=== PATIENT | female | born 1940 | race Caucasian/White ===

== ENCOUNTER 2019-03-13 20:53 | Inpatient (IN) | payer OTHER, MEDICAID ==
[~2019-03-13] VITALS: Ht 144.8 cm; Wt 100.2 kg
[2019-03-13 20:53] VITALS: BP_SYST 115
[~2019-03-13 20:53] MED LIST: ACET325T53 PO; APIX5TAB4 PO; ASCO500T20 PO; BUDE0.5A INH; ESCI10TA PO; FURO10VI27 IVP; GLUXR500 PO; INSU100V9 SQ; IPRA3AMP9 INH; KETO60CR2 TP; LIP40 PO; LORA-258 PO; MEMA5TAB15 PO; METO25TA3 PO; METO5TAB8 PO; OCUVITE PO; POTA-80 PO; PRED10TA PO; PRED5TAB PO; SSREG SUBCUT
--- NOTE | 2019-03-13 20:53 | NUR ---
Placed in room 02 . Placed on cardiac rn, blood pressure machine and pulse oximeter. To gown for exam. Side rails up.
--- NOTE | 2019-03-13 20:54 | NUR ---
ER Dr. Mauricio at bedside examining patient.
--- NOTE | 2019-03-13 20:55 | NUR ---
Pt BIB BLS from [facility] for abnormal potassium 6.5 and is being medically evaluated per PMD. Pt primary language english. Skin dry and warm, speaking loudly and clearly. VSS. No other injuries/complaints noted. Will continue to monitor.
[2019-03-13] MEDS ORDERED: NACL 0.9% 1,000 ML IV ONE (21:00)
[2019-03-13] MEDS ORDERED: DOCU-144 PO (21:13)
[2019-03-13] MEDS ORDERED: MELA3TAB64 PO (21:16)
[2019-03-13] MEDS ORDERED: METO25TA6 PO (21:17)
[2019-03-13] MEDS ORDERED: UTI-Stat Liquid PO (21:20)
--- NOTE | 2019-03-13 21:30 | NUR ---
Pt moved to bed 06
--- NOTE | 2019-03-13 21:35 | NUR ---
Portable X Ray bedside well tolerated
--- NOTE | 2019-03-13 21:41 | NUR ---
Medication reconciliation completed with information provided by Baron Collier. Any prior medication reconciliation on file was reviewed and corrected.
[2019-03-13 21:43] LABS: BASOPHILS # (AUTO) 0.1 K/uL (0.0-0.2); BASOPHILS % (AUTO) 0.7 % (0.0-2.0); EOSINOPHILS # (AUTO) 0.2 K/uL (0.0-0.4); EOSINOPHILS % (AUTO) 1.3 % (0.0-4.0); HEMATOCRIT 34.6 % (36-48); HEMOGLOBIN 10.7 g/dL (12.0-16.0); LYMPHOCYTES # (AUTO) 1.5 K/uL (1.0-5.5); LYMPHOCYTES % (AUTO) 12.4 % (20.5-51.5); MEAN CORPUSCULAR HEMOGLOBIN 27 pg (27-31); MEAN CORPUSCULAR HGB CONC 31 % (32-36); MEAN CORPUSCULAR VOLUME 86 fL (79.0-98.0); MONOCYTES % (AUTO) 8.1 % (1.7-9.3); NEUTROPHILS # (AUTO) 9.3 K/uL (1.8-7.7); NEUTROPHILS % (AUTO) 77.5 % (40.0-70.0); PLATELET COUNT (AUTO) 344 K/uL (130-430); RED BLOOD CELL COUNT(AUTO) 4.02 MIL/uL (4.2-6.2); RED CELL DISTRIBUTION WIDTH 17.5 % (9.0-15.0)
[2019-03-13 21:59] LABS: ANION GAP 4 (5-15); CALCIUM 9.1 mg/dL (8.4-11.0); CHLORIDE 101 mmol/L (98-107); GLUCOSE 150 mg/dL (70-99); POTASSIUM 5.3 mmol/L (3.5-5.1); SODIUM SERUM 136 mmol/L (136-145); UREA NITROGEN, BLOOD 59 mg/dL (8-21)
--- NOTE | 2019-03-13 22:00 | NUR ---
Daughter at bedside
[2019-03-13 22:05] LABS: ALANINE AMINOTRANSFERASE 33 U/L (12-78); ALBUMIN 2.7 g/dL (3.4-4.8); ASPARTATE AMINOTRANSFERASE 20 U/L (10-37); TOTAL BILIRUBIN 0.4 mg/dL (0.0-1.0)
--- NOTE | 2019-03-13 22:17 | NUR ---
# 14 Fr straight catheter with use of sterile technique. Immediate return of 20 cc yellow urine noted. Urine sample to be collected and sent to lab. Pt tolerated procedure well. Patient unable to toilet self.
--- NOTE | 2019-03-13 22:30 | NUR ---
End of life care decisions discussed with daughter by Dr. Mauricio. Opportunity for questions and concerns addressed. Patient's code status is DNR, paperwork completed and placed in chart. POLST placed in chart.
[2019-03-13 23:11] LABS: BILIRUBIN,URINE NEGATIVE (NEGATIVE); BLOOD, URINE 1+ (NEGATIVE); CLARITY/URINE HAZY (CLEAR); COLOR,URINE YELLOW (YELLOW); GLUCOSE,URINE NEGATIVE (NEGATIVE); KETONES,URINE NEGATIVE (NEGATIVE); LEUKOCYTE ESTERASE ,URINE 1+ (NEGATIVE); NITRITE, URINE NEGATIVE (NEGATIVE); PROTEIN URINE TRACE (NEGATIVE)
[2019-03-13] MEDS ORDERED: 0.45% NACL 1,000 ML IV SCH (23:45)
--- NOTE | 2019-03-13 23:48 | NUR ---
Patient will be admitted to care of DR. AUGUSTINE. Admitted to TELEMETRY unit. Will go to room 135. Summary report printed. Report will be given at bedside.
[2019-03-14] LABS: BACTERIA,URINE FEW /HPF (None Seen)
[2019-03-14 00:01] LABS: URINE AMORPHOUS URATE 2+ /HPF (None Seen)
[2019-03-14] MEDS ORDERED: LevALBUTEROL HCL 1.25 MG/0.5 ML *CONC.* VIAL.NEB (XOPENEX CONC.) INH PRN (00:30)
[2019-03-14] MEDS ORDERED: CEFEPIME 1 GM in D5W 50 ML IV SCH (00:30)
[2019-03-14] MEDS ORDERED: LORazepam 1 MG TABLET PO PRN (00:30)
--- NOTE | 2019-03-14 00:44 | NUR ---
ADMISSION NOTE Received patient from ER via reji, received report from ELIZABETH FORD. Patient admitted with diagnosis of UTI, DEHYDRATION. Patient oriented to hospital routine, call light, toileting and safety-patient verbalized understanding.
[2019-03-14] MEDS ORDERED: CEFEPIME 1 GM/VIAL (MAXIPIME) ONE (00:56)
[2019-03-14] MEDS ORDERED: CEFEPIME 1 GM in D5W 50 ML IV ONE (00:58)
[2019-03-14 01:12] VITALS: BP_SYST 111
[2019-03-14] MEDS: 0.45% NACL 1,000 ML IV SCH ×2 (01:17→17:10)
--- NOTE | 2019-03-14 02:20 | NUR ---
Patient is yelling. Noted patient with urinary incontinence. Patient wants to get out of bed. Assisted patient to the BSC with a gait belt. Patient is very unsteady. Had a BM in the BSC. Linen on the bed changed. Assisted patient with perineal care and changed the patients gown. Patient is now clean and dry. Patient returned back to bed. Resting comfortably in bed. No SOB, no acute distress, no complaints of pain. IVF infusing per MD order, see eMAR for details. Bed is locked, in the lowest position, 2x side rails up, bed alarm is on. Call light is within reach. Encouraged patient to call for assistance.
--- NOTE | 2019-03-14 03:12 | NUR ---
Patient is agitated, hitting staff members, and yelling. Attempted calming the patient down, but patient is still agitated and yelling. REROLLING MACHINE OPERATOR currently at the bedside staying with the patient. Charge nurse aware. Paging Dr Palencia, Dr IZQUIERDO supervisor contact and service clerks, for orders. Pharmacy placed pending orders on ativan dose.
--- NOTE | 2019-03-14 03:28 | NUR ---
Patient pulled out her IV site on the left AC. Catheter intact. New IV started on the right forearm #20g using sterile technique. Resumed IVF per MD order, see eMAR. Successful after 1 attempted. Patient tolerated procedure well.
[2019-03-14 04:22] VITALS: BP_SYST 111
--- NOTE | 2019-03-14 05:52 | NUR ---
Patient had an episode of urinary incontinence. Provide incontinence care as needed. Patient is now clean and dry resting in bed. Patient is yelling, combative. Educated patient now to hit the nursing staff. Patient is still yelling and agitated. Will continue to monitor closely.
--- NOTE | 2019-03-14 06:22 | NUR ---
Closing Notes Patient is resting comfortably in bed, awake and alert. Breathing even and unlabored with visible chest rise and fall noted. No SOB, no acute distress, no complaints of pain. IV site intact, dressing clean and dry, currently infusing IVF per MD order, see eMAR for details. Bed is locked, in the lowest position, 2x side rails up, bed alarm is on. Call light is within reach. Fall, safety precautions maintained. All needs have been met during this shift. Will endorse care to oncoming dayshift nurse.
[2019-03-14] MEDS: LevALBUTEROL HCL 1.25 MG/0.5 ML *CONC.* VIAL.NEB (XOPENEX CONC.) INH SCH ×3 (07:13→23:27)
[2019-03-14] MEDS: DOCUSATE SODIUM 100 MG CAPSULE PO SCH (08:35)
[2019-03-14] MEDS: PREDNISONE 10 MG TABLET PO SCH (08:36)
[2019-03-14] MEDS: METOLAZONE 5 MG TABLET PO SCH (08:36)
[2019-03-14] MEDS: MEMANTINE HCL 5 MG TABLET PO SCH ×2 (08:40→21:36)
[2019-03-14] MEDS: APIXABAN 2.5 MG TABLET PO SCH ×2 (08:43→21:47)
[2019-03-14] MEDS: METOPROLOL TARTRATE 25 MG TABLET PO SCH (09:33)
[2019-03-14] MEDS: BETA-CAROTENE W-C & E/ZN/CU TABLET PO SCH (09:33)
[2019-03-14 09:41] VITALS: BP_SYST 102
--- NOTE | 2019-03-14 10:28 | NUR ---
Nutrition Update Jerardo Scale 15 noted. Pt admitted for dehydration. Diet: mechanical soft BMI: 45.7 kg/m2 RD to follow per nutrition care standards.
[2019-03-14 11:39] VITALS: BP_SYST 104
[2019-03-14] MEDS: INSULIN REGULAR, HUMAN 100 UNITS/ML, 10 ML VIAL (humuLIN R) SUBCUT PRN (13:41)
[2019-03-14 16:23] VITALS: BP_SYST 112
--- NOTE | 2019-03-14 19:15 | NUR ---
CHANGE OF SHIFT; pt. sleeping when received on semi fowlers position. pt. non Georgian speaking, pt. is Yoruba. pt. with O2 @ 2l per nc, noted short of breath on exertion, occ. bouts of cough, endorsed by day shift,pt. did not eat today. safety precautions in place, bed alarm on. call light at bedside.
--- NOTE | 2019-03-14 20:30 | NUR ---
NOTES: pt. awakened, tries to communicate by calling or yelling for some name, VS checked. IV on rt. forearm, infiltrated, unable to flush. repositioned, incontinent of urine, guzman care done. noted swelling on both lower extremities, appears reddish and dried scabs and some ecchymosis on upper extremities. surveillance monitor shows atrial fib, rate> 100. pt. noted to cough and spit out thick greenish yellow mucus secretions.
[2019-03-14 21:00] VITALS: BP_SYST 116
[2019-03-14] MEDS ORDERED: INSULIN GLARGINE 100 UNITS/ML 10 ML VIAL SUBCUT SCH (21:00)
[2019-03-14] MEDS: ATORVASTATIN 20 MG TABLET PO SCH (21:35)
[2019-03-14] MEDS: CEFEPIME 1 GM in D5W 50 ML IV SCH (21:35)
--- NOTE | 2019-03-14 21:40 | NUR ---
NOTES: BS checked 93, Insulin not given since pt. is not eating and refused her Glucophage, few sips of water on the rest of medications, does not want with apple sauce. HOB elevated to prevent aspiration. restarted IV on rt. hand with gauge 24 and resume IVF.
[2019-03-14] MEDS: MELATONIN 3 MG TABLET PO SCH (21:44)
--- NOTE | 2019-03-14 23:00 | NUR ---
NOTES: pt. sleeping when checked. safety measures in place, bed alarm on.
--- NOTE | 2019-03-15 00:01 | NUR ---
NOTES: pt. sleeping when made rounds, kept warm with blanket. elevated both legs with pillow.
--- NOTE | 2019-03-15 02:00 | NUR ---
NOTES: pt. sliding down the bed, repositioned and turn to sides. check for incontinence. more alert, noted little croatian, very appreciative saying thank you. IVF patent, needs attended.
[2019-03-15 02:53] VITALS: BP_SYST 102
--- NOTE | 2019-03-15 04:30 | NUR ---
NOTES; pt. getting confused, removed IV site kerlix applied, reapplied. O2 removed as well. reoriented. repositioned. continue to monitor.
--- NOTE | 2019-03-15 06:00 | NUR ---
NOTES: been dozing on and off. pt. got incontinent of urine and guzman care done and kept dry, reposition, red reid on her back, Zgard cream applied also both heels and repositioned. IVF intact.
--- NOTE | 2019-03-15 06:45 | NUR ---
CLOSING NOTES; pt. removed her IV inspite of wrapping it. O2 continuous, HOB elevated. condition guarded. cardiac pattern unchanged. needs attended. fall risk precautions, bed alarm on, call light in reach. for further care and assistance. will endorse to day shift.
[2019-03-15] MEDS: LevALBUTEROL HCL 1.25 MG/0.5 ML *CONC.* VIAL.NEB (XOPENEX CONC.) INH SCH ×3 (07:40→22:05)
--- NOTE | 2019-03-15 07:53 | NUR ---
PT IN BED ON 2L NC VSS SHOWS S/S OF WHEEZING. RT TO GIVE BREATHING TREATMENT SOON. NO FAMILY AT BEDSIDE PT HAS LOUD OUTBURST AT TIMES. NO IV ACCESS WILL ATTEMPT TO PICC LINE.
[2019-03-15] MEDS: METOPROLOL TARTRATE 25 MG TABLET PO SCH (09:04)
[2019-03-15] MEDS: BETA-CAROTENE W-C & E/ZN/CU TABLET PO SCH (09:04)
[2019-03-15] MEDS: DOCUSATE SODIUM 100 MG CAPSULE PO SCH (09:04)
[2019-03-15] MEDS: MEMANTINE HCL 5 MG TABLET PO SCH ×2 (09:04→21:25)
[2019-03-15] MEDS: PREDNISONE 10 MG TABLET PO SCH (09:05)
[2019-03-15] MEDS: METOLAZONE 5 MG TABLET PO SCH (09:05)
[2019-03-15] MEDS: APIXABAN 2.5 MG TABLET PO SCH ×2 (09:18→21:28)
[2019-03-15 09:23] VITALS: BP_SYST 121
[2019-03-15] MEDS: 0.45% NACL 1,000 ML IV SCH ×2 (09:50→21:25)
[2019-03-15 11:16] LABS: BASOPHILS # (AUTO) 0.1 K/uL (0.0-0.2); BASOPHILS % (AUTO) 0.8 % (0.0-2.0); EOSINOPHILS # (AUTO) 0.1 K/uL (0.0-0.4); EOSINOPHILS % (AUTO) 0.9 % (0.0-4.0); HEMATOCRIT 34.2 % (36-48); HEMOGLOBIN 10.7 g/dL (12.0-16.0); LYMPHOCYTES # (AUTO) 1.1 K/uL (1.0-5.5); LYMPHOCYTES % (AUTO) 11.1 % (20.5-51.5); MEAN CORPUSCULAR HEMOGLOBIN 26 pg (27-31); MEAN CORPUSCULAR HGB CONC 31 % (32-36); MEAN CORPUSCULAR VOLUME 85 fL (79.0-98.0); MONOCYTES # (AUTO) 0.8 K/uL (0.0-1.0); NEUTROPHILS # (AUTO) 7.5 K/uL (1.8-7.7); NEUTROPHILS % (AUTO) 79.2 % (40.0-70.0); PLATELET COUNT (AUTO) 310 K/uL (130-430); RED BLOOD CELL COUNT(AUTO) 4.05 MIL/uL (4.2-6.2); RED CELL DISTRIBUTION WIDTH 17.6 % (9.0-15.0); WHITE BLOOD COUNT (AUTO) 9.5 K/uL (4.8-10.8)
[2019-03-15 11:40] LABS: ANION GAP 5 (5-15); CALCIUM 8.7 mg/dL (8.4-11.0); CHLORIDE 104 mmol/L (98-107); CREATININE 1.52 mg/dL (0.55-1.30); GLUCOSE 136 mg/dL (70-99); POTASSIUM 5.1 mmol/L (3.5-5.1); SODIUM SERUM 137 mmol/L (136-145); UREA NITROGEN, BLOOD 67 mg/dL (8-21)
[2019-03-15 14:02] VITALS: BP_SYST 105
[2019-03-15 15:25] VITALS: BP_SYST 124
--- NOTE | 2019-03-15 18:17 | NUR ---
new iv started in right hand patent. no redness noted. 1700 insulin held for bs 180 mg/dl due to pt not eating no acute distress noted will cont to monitor.
--- NOTE | 2019-03-15 19:45 | NUR ---
OPENING NOTES Pt is resting in bed, with both eyes closed. With visible chest rise and fall with non-labored breathing noted. Pt having her breathing treatment at this time. Pt on IVF with 0.45%NS at 60ml/hr and infusing well on right hand G24. No complains of pain or discomfort at this time. No signs of acute distress or SOB noted. Safety precautions in place with 3 side rails up, wheels locked, bed alarm on and in lowest level. Call light with pt. Will continue to monitor.
[2019-03-15] MEDS: CEFEPIME 1 GM in D5W 50 ML IV SCH (21:18)
[2019-03-15 21:23] VITALS: BP_SYST 110
[2019-03-15] MEDS: ATORVASTATIN 20 MG TABLET PO SCH (21:24)
[2019-03-15] MEDS: MELATONIN 3 MG TABLET PO SCH (21:24)
[2019-03-15] MEDS: INSULIN GLARGINE 100 UNITS/ML 10 ML VIAL SUBCUT SCH (21:30)
[2019-03-15] MEDS: INSULIN REGULAR, HUMAN 100 UNITS/ML, 10 ML VIAL (humuLIN R) SUBCUT PRN (21:31)
--- NOTE | 2019-03-15 21:31 | NUR ---
ROUNDS Incontinence care rendered with the help of NEHEMIAS Noyola. All due meds given and pt tolerated well. FS blood glucose was 221mg/dl. 4units Regular insulin SQ given per protocol and schedule 13units of Lantus given. No signs of acute distress noted.
--- NOTE | 2019-03-16 00:06 | NUR ---
ROUNDS Pt is resting in bed with both eyes closed, with visible chest rise and fall with non-labored breathing noted. No complains of pain and no signs of acute distress noted. IVF infusing well. Safety precautions in place and call light with pt. Will continue to monitor.
--- NOTE | 2019-03-16 01:01 | NUR ---
Positive for MRSA Nares: Received a call from Lab saying Patient is positive for MRSA nares. Primary RN made aware.
[2019-03-16 02:09] VITALS: BP_SYST 123
--- NOTE | 2019-03-16 02:23 | NUR ---
ROUNDS Pt is awake and talking at times. Pt on breathing treatment at this time. No signs of acute distress noted. IVF infusing well. Safety precautions in place and call light with pt. Will continue to monitor.
--- NOTE | 2019-03-16 04:18 | NUR ---
ROUNDS Pt is resting in bed with both eyes closed, with visible chest rise and fall with non-labored breathing noted. Pt wakes at intervals and goes back to sleep. IVF infusing well. No signs of acute distress or SOB noted. Safety precautions in place and call light with pt. Will continue to monitor.
[2019-03-16] MEDS: INSULIN REGULAR, HUMAN 100 UNITS/ML, 10 ML VIAL (humuLIN R) SUBCUT PRN ×4 (06:42→23:26)
--- NOTE | 2019-03-16 07:01 | NUR ---
CLOSING NOTES Pt is resting in bed with both eyes closed, with visible chest rise and fall with non-labored breathing noted. IVF infusing well. Maintained pt on O2 inhalation at 2L/min. No complains of pain or discomfort at this time. No signs of acute distress or SOB noted. All needs attended throughout the shift. Safety precautions in place with 3 side rails up, wheels locked, bed alarm on and in lowest level. Call light with pt. Will endorse to day shift nurse.
[2019-03-16] MEDS: LevALBUTEROL HCL 1.25 MG/0.5 ML *CONC.* VIAL.NEB (XOPENEX CONC.) INH SCH ×3 (07:23→23:39)
[2019-03-16 08:00] VITALS: BP_SYST 103
[2019-03-16 08:21] LABS: ANION GAP 5 (5-15); CALCIUM 7.9 mg/dL (8.4-11.0); CHLORIDE 105 mmol/L (98-107); CREATININE 1.34 mg/dL (0.55-1.30); GLUCOSE 176 mg/dL (70-99); POTASSIUM 4.9 mmol/L (3.5-5.1); SODIUM SERUM 140 mmol/L (136-145); UREA NITROGEN, BLOOD 52 mg/dL (8-21)
--- NOTE | 2019-03-16 10:00 | NUR ---
rounds speak with pt's daughter and relayed to her that refused breakfast and meds at this time. sleeps at intervals . turned repositoned and moans when being turned. pt close to the nurses station.
[2019-03-16 11:29] VITALS: BP_SYST 101
--- NOTE | 2019-03-16 11:37 | NUR ---
Dietitian Recommendations *Recommend Mechanical Soft CCHO diet. *If PO intake does not improve by next RD visit, consider adding ONS for additional calories. *Encourage pt to increase PO intake. *Continue MVI. Please see Nutritional Assessment for details. HALF-WAY, RD
--- NOTE | 2019-03-16 12:30 | NUR ---
rounds no hypo hyperglycemic reaction noted. confused and screaming at this time. call light within reached.
[2019-03-16] MEDS: MEMANTINE HCL 5 MG TABLET PO SCH ×2 (13:11→20:00)
[2019-03-16] MEDS: BETA-CAROTENE W-C & E/ZN/CU TABLET PO SCH (13:11)
[2019-03-16] MEDS: METOPROLOL TARTRATE 25 MG TABLET PO SCH (13:11)
[2019-03-16] MEDS: APIXABAN 2.5 MG TABLET PO SCH ×2 (13:12→20:00)
[2019-03-16] MEDS: PREDNISONE 10 MG TABLET PO SCH (13:12)
[2019-03-16] MEDS: METOLAZONE 5 MG TABLET PO SCH (13:13)
[2019-03-16] MEDS: DOCUSATE SODIUM 100 MG CAPSULE PO SCH (13:26)
--- NOTE | 2019-03-16 14:00 | NUR ---
rounds asleep at this time. bed to the lowest postion and pt close to the nurses station.
[2019-03-16 15:45] VITALS: BP_SYST 122
--- NOTE | 2019-03-16 17:24 | NUR ---
CONSULTATION CALLED FOR THAO DURON FOR CANSULT OF PSYCHOSIS ORDER BY DR AUGUSTINE SPOKE WITH CLAUDIO FACESHEET SENT OVER
--- NOTE | 2019-03-16 18:45 | NUR ---
closing notes pt is quite at this time.no periods of confusion. daughter at bedside. no sob noted. bed to the lowest position and side rails up and locked.
--- NOTE | 2019-03-16 19:20 | NUR ---
CHANGE OF SHIFT; pt. awake, alert, daughter at bedside, feeding her with fruits, did not eat dinner, with poor appetite. pt. gets confused and restless and attempts to remove IV. pt. speaks Yi, informed daughter to let her know not to remove IV and other stuff. pt. was placed on contact isolation for MRSA nares. on fall risk precautions. call light at bedside.
[2019-03-16] MEDS: MUPIROCIN 2% TOPICAL OINTMENT 22 GM NS SCH (19:59)
[2019-03-16] MEDS: 0.45% NACL 1,000 ML IV SCH (19:59)
[2019-03-16] MEDS: CEFEPIME 1 GM in D5W 50 ML IV SCH (19:59)
[2019-03-16] MEDS: MELATONIN 3 MG TABLET PO SCH (20:00)
[2019-03-16] MEDS: ATORVASTATIN 20 MG TABLET PO SCH (20:01)
--- NOTE | 2019-03-16 20:15 | NUR ---
NOTES: 'pt. sleeping, awakened, VS checked. still able to removed secured dressing on IV site, starts yelling and calling names, try to instruct to calm down and relax. able to swallow her medications. noted some ecchymosis on both arms, both legs swollen henry. rt. leg, skin reddened, elevated with pillows. pt. appears short of breath on exertion, O2 @ 2l/nc. HOB elevated for easier breathing. IV infusing via rt. thumb with !/2 NS 2 60 cc/hr. safety measures in place.call light at bedside.
[2019-03-16 21:00] VITALS: BP_SYST 99
--- NOTE | 2019-03-16 21:00 | NUR ---
NOTES: due hs care done, had BM , cleaned by ANCHOR TACKER and repositioned. pt. been yelling on and off.
--- NOTE | 2019-03-16 21:28 | NUR ---
CONSULT CONSULT CALLED FOR DR. MUNROE I SPOKE WITH MARTÍNEZ TAYLOR REASON FOR CONSULT: SCREAMING AT INTERVALS WHEN AWAKE REQUESTING CONSULT: DR. AUGUSTINE CHAIN FORMING MACHINE OPERATOR PHONE NUMBER: [phone] Addendum: 03/17/19 at 0156 by Evelyn Lara ND/ CONSULT WAS CALLED FOR DR. OSUNA I DID CALLED DR. OSUNA SPOKE WITH JENN BUT ON MY NOTES I WROTE DR. MUNROE BY MISTAKE
--- NOTE | 2019-03-16 22:15 | NUR ---
NOTES: Dr. Ugarte came at bedside but not talk to pt. since he does not speak her language, informed the Ativan order to clarify and said he will, made aware that pt. can swallow pills. condition observed. been dozing on and off.
[2019-03-16] MEDS: INSULIN GLARGINE 100 UNITS/ML 10 ML VIAL SUBCUT SCH (23:24)
--- NOTE | 2019-03-17 00:30 | NUR ---
NOTES: pt. removed her IV wrap again, been restless. tried to communicate by multicut line operator, repositioned. safety measure in place.
[2019-03-17 01:19] VITALS: BP_SYST 93
--- NOTE | 2019-03-17 01:58 | NUR ---
NOTES: pt. checked, been coughing, asked to cough up her secretions, HOB elevated, keep taking off her O@, gets wheezy at time henry. on exertion.
--- NOTE | 2019-03-17 04:00 | NUR ---
NOTES: condition guarded. observed contact isolation. been sleeping at intervals. repositioned. bed alarm on, side rails up.
--- NOTE | 2019-03-17 05:15 | NUR ---
NOTES: complete am and guzman care done, had another foul smelling brown stool and incontinent of urine. repositioned in bed, turn to sides. IV patent. suctioned orally with thick mucus secretions, HOB elevated.
[2019-03-17] MEDS: INSULIN REGULAR, HUMAN 100 UNITS/ML, 10 ML VIAL (humuLIN R) SUBCUT PRN ×3 (06:43→21:27)
[2019-03-17] MEDS: LevALBUTEROL HCL 1.25 MG/0.5 ML *CONC.* VIAL.NEB (XOPENEX CONC.) INH SCH ×2 (07:22→14:34)
[2019-03-17 08:00] VITALS: BP_SYST 114
--- NOTE | 2019-03-17 08:00 | NUR ---
initial notes rec patient asleep but arousable to stimuli. with periods of confusion and screams when awake. resp easy and unlabored. bed to the lowest position and siderails up and locked. call light within reached and knows when to call for for assistance. pt close to the nurses station and bed alarmed is on.
[2019-03-17] MEDS: MEMANTINE HCL 5 MG TABLET PO SCH ×2 (09:54→21:12)
[2019-03-17] MEDS: MUPIROCIN 2% TOPICAL OINTMENT 22 GM NS SCH ×2 (09:54→21:13)
[2019-03-17] MEDS: DOCUSATE SODIUM 100 MG CAPSULE PO SCH (09:55)
[2019-03-17] MEDS: PREDNISONE 10 MG TABLET PO SCH (09:55)
[2019-03-17] MEDS: METOLAZONE 5 MG TABLET PO SCH (09:58)
[2019-03-17] MEDS: APIXABAN 2.5 MG TABLET PO SCH ×2 (09:59→21:23)
[2019-03-17] MEDS: METOPROLOL TARTRATE 25 MG TABLET PO SCH (09:59)
--- NOTE | 2019-03-17 10:00 | NUR ---
rounds at the bedside and due meds were given and ese well. screaming at this time and med with ativan for agitation was given. pt close to the station.
[2019-03-17] MEDS: LORazepam 1 MG TABLET PO PRN (10:01)
[2019-03-17] MEDS: 0.45% NACL 1,000 ML IV SCH (11:50)
[2019-03-17 12:00] VITALS: BP_SYST 109
[2019-03-17 15:26] VITALS: BP_SYST 117
[2019-03-17] MEDS: BETA-CAROTENE W-C & E/ZN/CU TABLET PO SCH (18:29)
--- NOTE | 2019-03-17 18:30 | NUR ---
closing notes seen by dr quiroz at bedside and with orders. talking to patient son at bedside. no osb noted. bed to the lowest position and side rails up and locked.pt close to the nurses station.
--- NOTE | 2019-03-17 19:26 | NUR ---
CHANGE OF SHIFT; pt. sleeping when checked, family member came and brought food. on contact isolation for MRSA nares. safety measures in place.call light at bedside.
[2019-03-17] MEDS ORDERED: AMPICILLIN SODIUM/SULBACTAM NA 1.5 GM in NS 50 ML IV ONE (19:30)
--- NOTE | 2019-03-17 19:30 | NUR ---
NOTES: Dr. Jangium here and seen pt, aware of pt. rt. leg appears to be cellulitis, skin naga by day shift, new orders given. pt. son at bedside and was able to talk to MD. pt. son brought some food for the pt.
[2019-03-17] MEDS ORDERED: AMPICILLIN SODIUM/SULBACTAM NA 1.5 GM VIAL ONE ×2 (20:22→20:24)
[2019-03-17 20:30] VITALS: BP_SYST 115
--- NOTE | 2019-03-17 21:00 | NUR ---
NOTES; pt. awakened and repositioned. IVF site getting swollen, will attempt to restart another one. on contact isolation for MRSA nares. safety measures in place. rt. leg swollen and kept elevated with pillow. new IV antibiotic order infused. pt. noted occ. bouts of productive cough, gets wheezy on exertion. call light within reach.
[2019-03-17] MEDS: ATORVASTATIN 20 MG TABLET PO SCH (21:12)
[2019-03-17] MEDS: MEGESTROL ACETATE 400 MG/10 ML UDC PO SCH (21:12)
[2019-03-17] MEDS: MUPIROCIN 2% TOPICAL OINTMENT 22 GM TP SCH (21:14)
[2019-03-17] MEDS: CEFEPIME 1 GM in D5W 50 ML IV SCH (21:20)
[2019-03-17] MEDS: MELATONIN 3 MG TABLET PO SCH (21:20)
--- NOTE | 2019-03-17 22:00 | NUR ---
NOTES: pt. tolerated due po medications. pt. needs attended. call light at bedside.
[2019-03-17] MEDS: INSULIN GLARGINE 100 UNITS/ML 10 ML VIAL SUBCUT SCH (22:28)
[2019-03-18] MEDS: LevALBUTEROL HCL 1.25 MG/0.5 ML *CONC.* VIAL.NEB (XOPENEX CONC.) INH SCH ×4 (00:02→23:12)
--- NOTE | 2019-03-18 00:15 | NUR ---
NOTES; repositioned, fed her the bread and ate half of it, HOB elevated to prevent aspiration. safety measures in place.
[2019-03-18] MEDS: 0.45% NACL 1,000 ML IV SCH ×2 (00:56→18:57)
[2019-03-18] MEDS: AMPICILLIN SODIUM/SULBACTAM NA 1.5 GM in NS 50 ML IV SCH ×4 (01:28→18:57)
[2019-03-18 02:02] VITALS: BP_SYST 97
--- NOTE | 2019-03-18 03:29 | NUR ---
NOTES: pt. dozing on and off, everytime she wakes up she keeps yelling, condition unchanged. continue to monitor.
--- NOTE | 2019-03-18 05:30 | NUR ---
NOTES: pt. removed IV again, multiple IV sites ecchymotic on both arms with blood draw as well. pt. repositioned, incontinent of urine, guzman care done, kept both legs elevated. condition observed.
--- NOTE | 2019-03-18 06:00 | NUR ---
NOTES: pt. been yelling again on and off. condition obsrved. safety precautions in place. IV site intact.
--- NOTE | 2019-03-18 06:50 | NUR ---
CLOSING NOTES; pt. managed to remove again her IV and secured /kerlix dressing. will endorse to day shift. pt. gets restless and confused. HOB elevated, O2 keep taking off. contact isolation observed.
[2019-03-18] MEDS: INSULIN REGULAR, HUMAN 100 UNITS/ML, 10 ML VIAL (humuLIN R) SUBCUT PRN ×3 (07:00→21:02)
[2019-03-18 07:58] LABS: BASOPHILS # (AUTO) 0.1 K/uL (0.0-0.2); BASOPHILS % (AUTO) 0.9 % (0.0-2.0); EOSINOPHILS # (AUTO) 0.1 K/uL (0.0-0.4); EOSINOPHILS % (AUTO) 0.5 % (0.0-4.0); HEMOGLOBIN 9.6 g/dL (12.0-16.0); LYMPHOCYTES # (AUTO) 1.3 K/uL (1.0-5.5); LYMPHOCYTES % (AUTO) 10.3 % (20.5-51.5); MEAN CORPUSCULAR HEMOGLOBIN 26 pg (27-31); MEAN CORPUSCULAR HGB CONC 31 % (32-36); MEAN CORPUSCULAR VOLUME 84 fL (79.0-98.0); MONOCYTES # (AUTO) 0.8 K/uL (0.0-1.0); MONOCYTES % (AUTO) 6.2 % (1.7-9.3); NEUTROPHILS # (AUTO) 10.8 K/uL (1.8-7.7); NEUTROPHILS % (AUTO) 82.1 % (40.0-70.0); PLATELET COUNT (AUTO) 335 K/uL (130-430); RED CELL DISTRIBUTION WIDTH 17.7 % (9.0-15.0); WHITE BLOOD COUNT (AUTO) 13.1 K/uL (4.8-10.8)
[2019-03-18 07:59] LABS: ANION GAP 5 (5-15); CALCIUM 8.3 mg/dL (8.4-11.0); CHLORIDE 106 mmol/L (98-107); CREATININE 1.29 mg/dL (0.55-1.30); GLUCOSE 145 mg/dL (70-99); POTASSIUM 4.8 mmol/L (3.5-5.1); SODIUM SERUM 141 mmol/L (136-145); UREA NITROGEN, BLOOD 50 mg/dL (8-21)
[2019-03-18 08:00] VITALS: BP_SYST 119
--- NOTE | 2019-03-18 08:21 | NUR ---
Initial Note: Pt is awake, confused. No acute distress noted. Pt is on 2L NC, tolerating well. No IV access, pt keeps pulling out. Will attempt to start new one. Redness noted on right leg. Safety precautions in place, bed alarm on, call light within reach, and maintained on contact isolation.
[2019-03-18] MEDS: MEGESTROL ACETATE 400 MG/10 ML UDC PO SCH ×2 (09:06→21:07)
[2019-03-18] MEDS: METOLAZONE 5 MG TABLET PO SCH (09:08)
[2019-03-18] MEDS: PREDNISONE 10 MG TABLET PO SCH (09:08)
[2019-03-18] MEDS: DOCUSATE SODIUM 100 MG CAPSULE PO SCH (09:08)
[2019-03-18] MEDS: MEMANTINE HCL 5 MG TABLET PO SCH ×2 (09:08→21:07)
[2019-03-18] MEDS: BETA-CAROTENE W-C & E/ZN/CU TABLET PO SCH (09:08)
[2019-03-18] MEDS: METOPROLOL TARTRATE 25 MG TABLET PO SCH (09:09)
[2019-03-18] MEDS: APIXABAN 2.5 MG TABLET PO SCH ×2 (09:10→21:06)
[2019-03-18] MEDS: MUPIROCIN 2% TOPICAL OINTMENT 22 GM NS SCH ×2 (09:11→21:12)
[2019-03-18] MEDS: MUPIROCIN 2% TOPICAL OINTMENT 22 GM TP SCH ×2 (09:12→21:00)
--- NOTE | 2019-03-18 10:00 | NUR ---
Notes- Resting in bed, no acute distress noted. repositioned for comfort. elevated legs with pillow.
--- NOTE | 2019-03-18 11:53 | NUR ---
Notes- Unable to start IV, pt is very hardstick and keeps removing lines. Dr. Palencia and Dr. Allen at bedside and made aware. also aware that unable to give IV unasyn at 12. Md will order PIcc Line and okayed to put Mittens after PICC line insertion.
--- NOTE | 2019-03-18 11:59 | NUR ---
Notes-Family is at bedside and aware of PICC line to be inserted for pt. Addendum: 03/18/19 at 1207 by Apurva Rocha RN Pt agreeable, and consent was signed by family.
[2019-03-18] MEDS ORDERED: VANCOMYCIN HCL 1,500 MG in NS 250 ML IV ONE (12:00)
[2019-03-18] MEDS: LORazepam 1 MG TABLET PO PRN ×2 (12:38→22:26)
--- NOTE | 2019-03-18 12:41 | NUR ---
NOTES-PT AWAKE, CONFUSED AND AGITATED. PRN MEDICATION 0.5 ATIVAN GIVEN. REPOSITION PT FOR COMFORT, DECREASE NOISE AND DIMMED LIGHT. NO ACUTE DISTRESS NOTED. DENIES ANY PAIN OR SOB. PT CONTINUES TO BE ON 2L NC AND TOLERATING WELL.
[2019-03-18 13:01] LABS: INR 1.3 (0.8-1.2)
[2019-03-18 13:04] VITALS: BP_SYST 148
--- NOTE | 2019-03-18 14:00 | NUR ---
NOTES-PT ASLEEP. NO ACUTE DISTRESS NOTED. PT IS ON 2L NC, TOLERATING WELL, BREATHING IS EVEN AND UN-LABORED. SAFETY PRECAUTIONS OBSERVED, BED ALARM IS ON, AND ISOLATION PRECAUTIONS IN PLACE.
--- NOTE | 2019-03-18 15:05 | NUR ---
NOTES-STILL WAITING FOR PICC LINE NURSE TO COME. UNABLE TO GIVE VANCO AT THIS TIME.
--- NOTE | 2019-03-18 16:00 | NUR ---
NOTES-PT ASLEEP. ON 2L NC, TOLERATING WELL. BREATHING IS EVEN AND UN-LABORED. NO ACUTE DISTRESS NOTED. WILL CONTINUE TO MONITOR.
[2019-03-18 16:03] VITALS: BP_SYST 114
--- NOTE | 2019-03-18 16:30 | NUR ---
PT HAD BILATERAL MASTECTOMY DONE IN 2006 PER FAMILY.
--- NOTE | 2019-03-18 18:35 | NUR ---
NOTE-PICC LINE DONE ON RIGHT UPPER ARM. WAITING FOR X-RAY.
--- NOTE | 2019-03-18 18:35 | NUR ---
CLOSING NOTE- PT IN BED, ASLEEP. NO ACUTE DISTRESS NOTED. BREATHING EVEN AND UN-LABORED. WAITING FOR X-RAY TO CONFIRM PICC LINE PLACEMENT. WILL ENDORSE PT CARE TO SAAS ARCHITECT NURSE.
--- NOTE | 2019-03-18 19:35 | NUR ---
ROUNDS PATIENT IN BED, AWAKE, ALERT, ORIENTED, CONFUSED, NOT IN DISTRESS, VITALS STABLE. NO SIGNS OF ANY PAIN AND DISCOMFORT NOTED. ASSESSMENT DONE AND DOCUMENTED. SEE FLOWSHEET. NEEDS ATTENDED TO. SAFETY AND FALL PRECAUTION MEASURES IN PLACED. BED N LOW AND LOCKED POSITION. BED ALARM ON. CALL LIGHT PLACED WITHIN REACH.
[2019-03-18] MEDS: INSULIN GLARGINE 100 UNITS/ML 10 ML VIAL SUBCUT SCH (21:01)
[2019-03-18] MEDS: ATORVASTATIN 20 MG TABLET PO SCH (21:07)
[2019-03-18] MEDS: MELATONIN 3 MG TABLET PO SCH (21:12)
--- NOTE | 2019-03-18 21:13 | NUR ---
MEDICATION DUE MEDICATIONS GIVEN SCHEDULED, TOLERATED WELL. WILL CONTINUE TO MONITOR.
--- NOTE | 2019-03-19 00:10 | NUR ---
PATIENT RESTING: Patient resting quietly. No acute distress noted. Vital signs within normal range.
[2019-03-19] MEDS: AMPICILLIN SODIUM/SULBACTAM NA 1.5 GM in NS 50 ML IV SCH ×3 (00:52→12:04)
--- NOTE | 2019-03-19 02:10 | NUR ---
ROUNDS PATIENT ASLEEP AT THIS TIME, NO SOB NOR PAIN AND DISCOMFORT NOTED. WILL CONTINUE TO MONITOR.
--- NOTE | 2019-03-19 04:16 | NUR ---
ROUNDS PATIENT ASLEEP, VITALS STABLE, RESPIRATIONS EVEN AND UNLABORED. WILL CONTINUE TO MONITOR.
[2019-03-19 06:29] VITALS: BP_SYST 130
--- NOTE | 2019-03-19 06:55 | NUR ---
ROUNDS PATIENT AWAKE, RESTING COMFORTABLY AT THIS TIME, VITALS STABLE. ALL NEEDS ATTENDED TO. SAFETY MEASURES MAINTAINED. CALL LIGHT PLACED WITHIN REACH.
[2019-03-19] MEDS: LevALBUTEROL HCL 1.25 MG/0.5 ML *CONC.* VIAL.NEB (XOPENEX CONC.) INH SCH ×2 (07:31→15:20)
--- NOTE | 2019-03-19 08:00 | NUR ---
initial notes rec patient awake with period of confusion. picc line on the r upper arm intact. no infiltration noted. resp easy and unlabored. with wheezing noted. with sob on exertion. on breathin tx at bedside. bed to the lowest position and side rails up and locked. call light wihtn reached and bed larm is on. pt close to the nurse station. will continue to monitor patient.
[2019-03-19] MEDS: DOCUSATE SODIUM 100 MG CAPSULE PO SCH (09:27)
[2019-03-19] MEDS: MUPIROCIN 2% TOPICAL OINTMENT 22 GM NS SCH (09:27)
[2019-03-19] MEDS: BETA-CAROTENE W-C & E/ZN/CU TABLET PO SCH (09:27)
[2019-03-19] MEDS: PREDNISONE 10 MG TABLET PO SCH (09:27)
[2019-03-19] MEDS: MEMANTINE HCL 5 MG TABLET PO SCH (09:27)
[2019-03-19] MEDS: METOPROLOL TARTRATE 25 MG TABLET PO SCH (09:28)
[2019-03-19] MEDS: APIXABAN 2.5 MG TABLET PO SCH (09:29)
[2019-03-19] MEDS: MEGESTROL ACETATE 400 MG/10 ML UDC PO SCH (09:30)
[2019-03-19] MEDS: MUPIROCIN 2% TOPICAL OINTMENT 22 GM TP SCH (09:31)
--- NOTE | 2019-03-19 10:00 | NUR ---
rounds due meds given as ordered and ese well. no sob noted. complete bed changed done at bedside with kory castillo.
[2019-03-19] MEDS ORDERED: VANCOMYCIN HCL 1 GM/NS PREMIX 250 ML IV SCH (12:00)
--- NOTE | 2019-03-19 12:00 | NUR ---
rounds seen by dr quiroz. no hypo hyperglycemic reaction noted. bed to the lowest position. no osb noted.
--- NOTE | 2019-03-19 12:14 | NUR ---
CONSULTATION PAGED/CALLED Reason for Consultation: CELLULITIS RIGHT LEG Person Who was Notified: SPOKE WITH KIERAN FROM OFFICE. Consulting Physician: Integration Aide Specialty: ID Ordering Physician:
[2019-03-19] MEDS ORDERED: risperiDONE 0.25 MG TABLET (RisperDAL) PO ONE (12:15)
[2019-03-19 12:26] LABS: BASOPHILS # (AUTO) 0.1 K/uL (0.0-0.2); BASOPHILS % (AUTO) 0.5 % (0.0-2.0); EOSINOPHILS # (AUTO) 0.1 K/uL (0.0-0.4); EOSINOPHILS % (AUTO) 0.9 % (0.0-4.0); HEMATOCRIT 32.5 % (36-48); LYMPHOCYTES # (AUTO) 1.2 K/uL (1.0-5.5); LYMPHOCYTES % (AUTO) 9.3 % (20.5-51.5); MEAN CORPUSCULAR HEMOGLOBIN 26 pg (27-31); MEAN CORPUSCULAR HGB CONC 31 % (32-36); MEAN CORPUSCULAR VOLUME 86 fL (79.0-98.0); MONOCYTES % (AUTO) 7.7 % (1.7-9.3); NEUTROPHILS # (AUTO) 10.2 K/uL (1.8-7.7); NEUTROPHILS % (AUTO) 81.6 % (40.0-70.0); PLATELET COUNT (AUTO) 353 K/uL (130-430); WHITE BLOOD COUNT (AUTO) 12.5 K/uL (4.8-10.8)
[2019-03-19 13:00] VITALS: BP_SYST 112
[2019-03-19] MEDS: METOLAZONE 5 MG TABLET PO SCH (13:01)
--- NOTE | 2019-03-19 14:00 | NUR ---
rounds awake and shouting at this time.
--- NOTE | 2019-03-19 14:12 | NUR ---
Nutrition F/U RD reviewed pt's current EMR including diet Hx, physician notes, nursing notes, pertinent labs/m,eds/procedures, care trends and care activity. Current Diet Order:Mech Soft, Standard Carb 60gm PO intakes: 30% average x 5 meals Subjective information: Pt asleep upon RD interview. Per RN outside pt room, pt appetite and PO intake remains poor, megace initiated a couple days ago. Pt daughter comes in the evening bringing food from home, which pt will eat. Per RN, no BM yet. Estimated Energy Expenditure (kcals/day) 2157-4066 kcal/day (25-30 kcal/kg Adj IBW for Obesity) Estimated Protein Required (g/day) 54-65gm/day(1-1.2gm/kg Adj IBW -Geriatric maintenance/elevated Renal labs ) Estimated Fluid Required (l/day) 1.4-1.6 L/day (1ml/calorie for Geriatric maintenance) Problem/Etiology/Signs/Symptoms Altered nutrition related laboratory value r/t endocrine dysfunction AEB elevated BG and POC BG lab values. *ongoing Inadequate nutrient intake r/t possible poor appetite AEB PO intake does not meet 75% of estimated needs. *ongoing Expected Outcomes/Goals Monitor appetite and PO intake w/ goal of pt meeting at least 75% of estimated nutritional needs, labs trending WNL, normal GI function, skin integrity/wt maintenance. Dietitian Recommendations *Continue Mechanical Soft CCHO diet. *Recommend Glucerna BID (provides 475kcal and 84g of Pro) to help meet estimated needs with poor PO intake. *Encourage pt to increase PO intake. *Continue MVI. Follow Up High Risk: F/U in 2-3days
[2019-03-19 15:26] VITALS: BP_SYST 112
--- NOTE | 2019-03-19 15:40 | NUR ---
Discharge Planning: DCP faxed to [facility]lier (f [phone] p [phone]) Rm 23A , [place] ([phone]) 4:00pm P/U. Packet taken to nurse station.
[2019-03-19] MEDS ORDERED: risperiDONE 0.25 MG TABLET (RisperDAL) PO SCH (21:00)
[2019-03-30] MEDS ORDERED: MEGE40TA PO (23:03)
[2019-03-30] MEDS ORDERED: MULT-1100 PO (23:03)
[2019-03-30] MEDS ORDERED: LEVA1.2527 NEB (23:03)
[2019-03-30] MEDS ORDERED: ASCO500T20 PO (23:03)
[2019-03-30] MEDS ORDERED: RISP0.253 PO (23:03)
[2019-03-30] MEDS ORDERED: LORA-258 PO (23:03)
[2019-03-30] MEDS ORDERED: ZINC30CA PO (23:03)
[2019-04-10] MEDS ORDERED: MELA3TAB64 PO (17:57)
== END 2019-03-19 16:15 | DRG 871 ==
LOC: SED 20:53 → STU 23:41
PROVIDERS: ADMIT Family Medicine; ATTEND Family Medicine
PROC: 02HV33Z Insertion of Infusion Device into Superior Vena Cava, Percutaneous Approach (ICD-10-PCS; principal; 2019-03-18)
PROC: B548ZZA Ultrasonography of Superior Vena Cava, Guidance (ICD-10-PCS; 2019-03-18)
DX: A41.9 Sepsis, unspecified organism (principal); G93.41 Metabolic encephalopathy; N17.9 Acute kidney failure, unspecified; L03.115 Cellulitis of right lower limb; J90 Pleural effusion, not elsewhere classified; N39.0 Urinary tract infection, site not specified; Z68.42 Body mass index [BMI] 45.0-49.9, adult; E86.0 Dehydration; I48.91 Unspecified atrial fibrillation; B96.20 Unspecified Escherichia coli [E. coli] as the cause of diseases classified elsewhere; E11.9 Type 2 diabetes mellitus without complications; M19.90 Unspecified osteoarthritis, unspecified site; F29 Unspecified psychosis not due to a substance or known physiological condition; E87.5 Hyperkalemia; F03.90 Unspecified dementia, unspecified severity, without behavioral disturbance, psychotic disturbance, mood disturbance, and anxiety; E66.9 Obesity, unspecified; I10 Essential (primary) hypertension; J44.9 Chronic obstructive pulmonary disease, unspecified; Z22.322 Carrier or suspected carrier of Methicillin resistant Staphylococcus aureus; Z87.891 Personal history of nicotine dependence
CPT/HCPCS: 36415; 71045; 80048; 80053; 81000-TC; 82962; 83880; 84484; 85025; 85610-TC; 85730-TC; 87081; 87086; 87186-TC; 93005; 94640; 94760; 96360; 99285; C1751; C1769; G0378; J0295; J0692; J1815; J3370; J7050; J7060; J7512; J7612

== ENCOUNTER 2019-04-10 16:34 | Inpatient (IN) | payer OTHER, MEDICAID ==
[~2019-04-10] VITALS: Ht 149.9 cm; Wt 95.7 kg
[2019-04-10] VITALS (7 sets, daily range): BP systolic 97–128
--- NOTE | 2019-04-10 16:39 | NUR ---
Placed in room 07 . Placed on threat monitoring analyst, blood pressure machine and pulse oximeter. To gown for exam. Side rails up.
--- NOTE | 2019-04-10 16:40 | NUR ---
Per documentation pt is DNR. Dr Francisco notified.
--- NOTE | 2019-04-10 16:42 | NUR ---
Pt brought by ACLS, A&Ox1, pt presents to ER with SOB and cough x 3 days and ALOC, hypoxic 65% on scene , pt arrived with 15 L non-rebreather mask, O2 100 % on mask, pt arrived with IV 22 on L wrist, cap refill <3, afebrile, will continue to monitor.
--- NOTE | 2019-04-10 16:45 | NUR ---
Cady Brooks at bedside examining patient
--- NOTE | 2019-04-10 16:50 | NUR ---
X-ray at bedside
[2019-04-10] MEDS ORDERED: IPRATROPIUM/ALBUTEROL SULFATE 3 ML AMPUL.NEB (DUONEB) INH ONE (17:00)
--- NOTE | 2019-04-10 17:00 | NUR ---
RT at bedside
--- NOTE | 2019-04-10 17:05 | NUR ---
IV placed by medics on L wrist is infiltrated , IV removed at this time.
--- NOTE | 2019-04-10 17:10 | NUR ---
Pt placed on BIPAP by RT as ordered by Dr Francisco.
[2019-04-10 17:15] LABS: BASOPHILS # (AUTO) 0.1 K/uL (0.0-0.2); BASOPHILS % (AUTO) 1.2 % (0.0-2.0); EOSINOPHILS # (AUTO) 0.1 K/uL (0.0-0.4); EOSINOPHILS % (AUTO) 1.1 % (0.0-4.0); HEMATOCRIT 29.2 % (36-48); LYMPHOCYTES # (AUTO) 0.5 K/uL (1.0-5.5); LYMPHOCYTES % (AUTO) 5.5 % (20.5-51.5); MEAN CORPUSCULAR HEMOGLOBIN 24 pg (27-31); MEAN CORPUSCULAR HGB CONC 30 % (32-36); MEAN CORPUSCULAR VOLUME 80 fL (79.0-98.0); MONOCYTES # (AUTO) 0.4 K/uL (0.0-1.0); NEUTROPHILS # (AUTO) 8.8 K/uL (1.8-7.7); NEUTROPHILS % (AUTO) 88.2 % (40.0-70.0); PLATELET COUNT (AUTO) 293 K/uL (130-430); RED BLOOD CELL COUNT(AUTO) 3.64 MIL/uL (4.2-6.2); RED CELL DISTRIBUTION WIDTH 19.4 % (9.0-15.0); WHITE BLOOD COUNT (AUTO) 9.9 K/uL (4.8-10.8)
[2019-04-10] MEDS ORDERED: INSULIN REGULAR, HUMAN 100 UNITS/ML, 10 ML VIAL SUBCUT ONE (17:15)
[2019-04-10 17:22] LABS: BILIRUBIN,URINE NEGATIVE (NEGATIVE); BLOOD, URINE NEGATIVE (NEGATIVE); CLARITY/URINE CLEAR (CLEAR); COLOR,URINE YELLOW (YELLOW); GLUCOSE,URINE NEGATIVE (NEGATIVE); KETONES,URINE NEGATIVE (NEGATIVE); LEUKOCYTE ESTERASE ,URINE NEGATIVE (NEGATIVE); NITRITE, URINE NEGATIVE (NEGATIVE); PH,URINE 7.5 (5.0-8.0); PROTEIN URINE TRACE (NEGATIVE)
[2019-04-10 17:23] LABS: ANION GAP 4 (5-15); CALCIUM 8.6 mg/dL (8.4-11.0); CHLORIDE 103 mmol/L (98-107); CREATININE 1.14 mg/dL (0.55-1.30); GLUCOSE 244 mg/dL (70-99); SODIUM SERUM 140 mmol/L (136-145); UREA NITROGEN, BLOOD 34 mg/dL (8-21)
[2019-04-10 17:25] LABS: HEMOGLOBIN 8.6 g/dL (12.0-16.0)
--- NOTE | 2019-04-10 17:25 | NUR ---
16# FR In and Out catheter with use of sterile technique. Immediate return of 100 ml urine noted. Urine sample collected and sent to lab. Pt tolerated procedure . Patient unable to toilet self.
[2019-04-10 17:26] LABS: POTASSIUM 2.7 mmol/L (3.5-5.1)
[2019-04-10] MEDS ORDERED: KCL 40 mEq in 100 mL (PREMIX) 100 ML IV ONE (17:30)
[2019-04-10] MEDS ORDERED: FUROSEMIDE 40 MG/4 ML VIAL IVP ONE (17:30)
[2019-04-10 17:31] LABS: RBC,URINE 0-3 /HPF (0-3)
[2019-04-10 17:32] LABS: BACTERIA,URINE FEW /HPF (None Seen); MUCUS,URINE None Seen /LPF (None Seen); WBC,URINE 0-3 /HPF (0-3)
--- NOTE | 2019-04-10 17:33 | NUR ---
pt off the unit for CT
[2019-04-10 17:39] LABS: ALANINE AMINOTRANSFERASE 23 U/L (12-78); ALBUMIN 1.9 g/dL (3.4-4.8); ASPARTATE AMINOTRANSFERASE 16 U/L (10-37); TOTAL BILIRUBIN 0.5 mg/dL (0.0-1.0)
[2019-04-10] MEDS ORDERED: INSULIN REGULAR, HUMAN 10 UNITS/0.1 ML INJ ONE (17:42)
--- NOTE | 2019-04-10 17:45 | NUR ---
Pt returned from CT on stable condition, RT at bedside
[2019-04-10] MEDS ORDERED: KCL 20 mEq in 100 mL (PREMIX) 200 ML IV ONE (17:48)
[2019-04-10] MEDS ORDERED: PRED10TA PO (17:55)
[2019-04-10] MEDS ORDERED: DIA250 PO (17:55)
[2019-04-10] MEDS ORDERED: APIX2.5T PO (17:55)
[2019-04-10] MEDS ORDERED: MEMA10TA PO (17:55)
[2019-04-10] MEDS ORDERED: LIP40 PO (17:55)
[2019-04-10] MEDS ORDERED: MELA3TAB PO (17:57)
[2019-04-10] MEDS ORDERED: IPRA12.9 INH (17:57)
--- NOTE | 2019-04-10 17:57 | NUR ---
Medication reconciliation completed with information provided by Baron Collier . Any prior medication reconciliation on file was reviewed and corrected.
--- NOTE | 2019-04-10 18:15 | NUR ---
Pt's family at bedside , pt Alert x2 , pt requesting something to eat
--- NOTE | 2019-04-10 18:30 | NUR ---
Patient will be admitted to care of Dr Palencia Admitted to ICU unit. Will go to room 07. Belongings list completed. Summary report printed. Report will be given at bedside.
--- NOTE | 2019-04-10 18:36 | NUR ---
Opening Note Received patient on simple mask via gurney and was given report by CALENDER TENDER @ bedside. Patient to ICU-7 and connected to case monitor. Patient then placed on bipap with settings of 12/5, FiO2 50%, pressure support 7, and rate of 20. Patient has a right hand 22 infusing 20 meq k-sabiha @ 50 ml/hr @ this time. No signs of distress noted. Safety precautions enforced.
--- NOTE | 2019-04-10 18:57 | NUR ---
Patient to be moved to ICU-6.
--- NOTE | 2019-04-10 19:21 | NUR ---
Closing Note Patient endorsed to tosser RN using SBAR format. Patient in no signs of distress @ this time. Safety precautions enforced.
[2019-04-10] MEDS ORDERED: LevALBUTEROL HCL 1.25 MG/0.5 ML *CONC.* VIAL.NEB (XOPENEX CONC.) INH PRN (19:30)
--- NOTE | 2019-04-10 19:30 | NUR ---
DR RAMANIUM HERE AND EXAMINED PT.HE SAID, OK TO HAVE THE PULMONARY CONSULT SEE THE PT IN AM
[2019-04-10] MEDS: KCL 20 mEq in 0.45% NS 1000 mL 1,000 ML IV SCH ×2 (19:56→20:25)
--- NOTE | 2019-04-10 20:00 | NUR ---
JEFFERS CATH: # 18 FR Jeffers catheter with 10 cc bulb inserted with use of sterile technique. Bulb inflated with 10 cc sterile water. Bedside drainage bag placed below level of bladder. Pt tolerated procedure.
[2019-04-10] MEDS: MEMANTINE HCL 5 MG TABLET PO SCH (20:13)
[2019-04-10] MEDS: ATORVASTATIN 20 MG TABLET PO SCH (20:13)
[2019-04-10] MEDS: MELATONIN 3 MG TABLET PO SCH (20:24)
[2019-04-10] MEDS: risperiDONE 0.25 MG TABLET (RisperDAL) PO SCH (20:29)
[2019-04-10] MEDS ORDERED: KCL 20 mEq in 0.45% NS 1000 mL 1,000 ML IV ONE (20:32)
[2019-04-10] MEDS ORDERED: APIXABAN 2.5 MG TABLET PO SCH (21:00)
--- NOTE | 2019-04-10 21:15 | NUR ---
DR SOLIS CALLED IN RE: CONSULT AND WAS MADE AWARE THAT ITS OK TO SEE PT IN AM PER DR AUGUSTINE
[2019-04-11] VITALS (24 sets, daily range): BP systolic 99–153
--- NOTE | 2019-04-11 | NUR ---
Pt in bed no acute distress noted at this time. Will continue to monitor Pt.
[2019-04-11] MEDS: LevALBUTEROL HCL 1.25 MG/0.5 ML *CONC.* VIAL.NEB (XOPENEX CONC.) INH SCH ×4 (02:25→19:30)
--- NOTE | 2019-04-11 04:00 | NUR ---
Pt in bed no acute distress noted at this time. Will continue to monitor Pt.
[2019-04-11] MEDS: ACETAMINOPHEN 325 MG TABLET PO PRN (04:32)
--- NOTE | 2019-04-11 05:00 | NUR ---
Fio2 lowered down to 30%. Pt able to tolerate. Will continue to monitor Pt.
[2019-04-11 06:03] LABS: BASOPHILS # (AUTO) 0.1 K/uL (0.0-0.2); BASOPHILS % (AUTO) 0.7 % (0.0-2.0); EOSINOPHILS # (AUTO) 0.2 K/uL (0.0-0.4); EOSINOPHILS % (AUTO) 2.1 % (0.0-4.0); HEMATOCRIT 28.8 % (36-48); HEMOGLOBIN 8.7 g/dL (12.0-16.0); LYMPHOCYTES # (AUTO) 1.5 K/uL (1.0-5.5); LYMPHOCYTES % (AUTO) 17.6 % (20.5-51.5); MEAN CORPUSCULAR HEMOGLOBIN 24 pg (27-31); MEAN CORPUSCULAR HGB CONC 30 % (32-36); MEAN CORPUSCULAR VOLUME 81 fL (79.0-98.0); MONOCYTES # (AUTO) 0.6 K/uL (0.0-1.0); MONOCYTES % (AUTO) 7.4 % (1.7-9.3); NEUTROPHILS # (AUTO) 6.1 K/uL (1.8-7.7); NEUTROPHILS % (AUTO) 72.2 % (40.0-70.0); PLATELET COUNT (AUTO) 275 K/uL (130-430); RED BLOOD CELL COUNT(AUTO) 3.58 MIL/uL (4.2-6.2); RED CELL DISTRIBUTION WIDTH 19.7 % (9.0-15.0); WHITE BLOOD COUNT (AUTO) 8.5 K/uL (4.8-10.8)
[2019-04-11 06:14] LABS: ANION GAP 6 (5-15); CALCIUM 7.9 mg/dL (8.4-11.0); CHLORIDE 107 mmol/L (98-107); CREATININE 1.14 mg/dL (0.55-1.30); GLUCOSE 97 mg/dL (70-99); POTASSIUM 3.5 mmol/L (3.5-5.1); SODIUM SERUM 147 mmol/L (136-145); UREA NITROGEN, BLOOD 32 mg/dL (8-21)
--- NOTE | 2019-04-11 07:00 | NUR ---
Paged Dr Palencia, awaiting for callback.
--- NOTE | 2019-04-11 07:04 | NUR ---
CLOSING NOTES Pt in bed, no acute distress. IV lines and skin checked with oncoming RN. Will give report via SBAR.
--- NOTE | 2019-04-11 07:10 | NUR ---
OPENING NOTE: Received SBAR report and plan of care from certified registered locksmith RN
[2019-04-11] MEDS ORDERED: FUROSEMIDE 40 MG/4 ML VIAL IVP ONE (09:00)
--- NOTE | 2019-04-11 09:15 | NUR ---
Dr Alves at bedside, new orders received
[2019-04-11] MEDS: acetaZOLAMIDE 250 MG TABLET (DIAMOX) PO SCH (09:23)
[2019-04-11] MEDS: 0.45% NACL 1,000 ML IV SCH (09:23)
[2019-04-11] MEDS: risperiDONE 0.25 MG TABLET (RisperDAL) PO SCH ×2 (09:23→20:20)
[2019-04-11] MEDS: MEMANTINE HCL 5 MG TABLET PO SCH ×2 (09:35→20:20)
[2019-04-11] MEDS ORDERED: POTASSIUM CHLORIDE 20 MEQ TAB.PRT.SR PO ONE (09:45)
[2019-04-11] MEDS ORDERED: PREDNISONE 10 MG TABLET PO ONE (09:45)
--- NOTE | 2019-04-11 10:30 | NUR ---
ABG: Notified Dr Alves of abnormal ABG values received, no new orders at this time.
--- NOTE | 2019-04-11 10:32 | NUR ---
Nutrition Update Jerardo Scale 14 noted. Pt admitted for acute respiratory failure. Diet: CCHO, 2gmNA, Mechanical Soft BMI: 42.8 kg/m2 RD to follow per nutrition care standards.
[2019-04-11] MEDS: INSULIN REGULAR, HUMAN 100 UNITS/ML, 10 ML VIAL (humuLIN R) SUBCUT PRN ×2 (17:47→20:22)
--- NOTE | 2019-04-11 18:03 | NUR ---
Dietitian Recommendations 1. Continue DEACON Alonzo diet Please see Nutrition Assessment for further details. LT, RD
--- NOTE | 2019-04-11 19:16 | NUR ---
ENDORSEMENT: SBAR report given and plan of care endorsed to shift supervisor film processing RN.
--- NOTE | 2019-04-11 19:30 | NUR ---
PM ASSESSMENT REPORT RECEIVED FROM RUIZ JOHNSON. PT RECEIVED IN BED WITH EYES CLOSED, RESPONDING TO VERBAL STIMULATION AND PRIMARILY WELSH SPEAKING. VSS, NO S/S OF ACUTE DISTRESS NOTED. PT ON 4L NC. A-FIB ON MONITOR. LFA 22G INFUSING 1/2 NS @ 40 CC/HR. JEFFERS CATH IN PLACE DRAINING YELLOW URINE TO GRAVITY. HOB ELEVATED, BED IN LOWEST POSITION, CALL LIGHT IN REACH. WILL CONTINUE TO MONITOR PT.
--- NOTE | 2019-04-11 20:00 | NUR ---
DR. TIMBO NEWTON AT BEDSIDE TO EVALUATE PT. NO NEW ORDERS RECEIVED AT THIS TIME. WILL CONTINUE TO MONITOR PT.
[2019-04-11] MEDS: ATORVASTATIN 20 MG TABLET PO SCH (20:19)
[2019-04-11] MEDS: MELATONIN 3 MG TABLET PO SCH (20:20)
--- NOTE | 2019-04-11 20:45 | NUR ---
CHG CHG BATH GIVEN AT THIS TIME. RAJ CARE DONE AND LINENS CHANGED. PT TOLERATED WELL. WILL CONTINUE TO MONITOR PT.
--- NOTE | 2019-04-11 22:30 | NUR ---
IV PLACEMENT: PT PULLED OUT IV SITE TO LFA. # 20 gauge angiocath REINSERTED to LFA. Use of asceptic technique. Opsite placed over site. Blood return noted. IV SITE COVERED WITH COBAN. Flushed with 10 cc of normal saline. No evidence of infiltration noted. Patient tolerated WELL.
[2019-04-12] VITALS (24 sets, daily range): BP systolic 94–151
--- NOTE | 2019-04-12 00:15 | NUR ---
BIPAP PT PLACED ON BIPAP BY RT AT THIS TIME. WILL CONTINUE TO MONITOR PT.
[2019-04-12] MEDS: LevALBUTEROL HCL 1.25 MG/0.5 ML *CONC.* VIAL.NEB (XOPENEX CONC.) INH SCH ×4 (00:16→19:45)
[2019-04-12 05:28] LABS: BASOPHILS # (AUTO) 0.1 K/uL (0.0-0.2); BASOPHILS % (AUTO) 0.9 % (0.0-2.0); EOSINOPHILS # (AUTO) 0.1 K/uL (0.0-0.4); EOSINOPHILS % (AUTO) 1.6 % (0.0-4.0); HEMATOCRIT 27.7 % (36-48); HEMOGLOBIN 8.3 g/dL (12.0-16.0); LYMPHOCYTES # (AUTO) 1.5 K/uL (1.0-5.5); MEAN CORPUSCULAR HEMOGLOBIN 24 pg (27-31); MEAN CORPUSCULAR HGB CONC 30 % (32-36); MEAN CORPUSCULAR VOLUME 80 fL (79.0-98.0); MONOCYTES # (AUTO) 0.8 K/uL (0.0-1.0); MONOCYTES % (AUTO) 8.2 % (1.7-9.3); NEUTROPHILS # (AUTO) 6.8 K/uL (1.8-7.7); NEUTROPHILS % (AUTO) 73.3 % (40.0-70.0); PLATELET COUNT (AUTO) 267 K/uL (130-430); RED BLOOD CELL COUNT(AUTO) 3.46 MIL/uL (4.2-6.2); RED CELL DISTRIBUTION WIDTH 20.1 % (9.0-15.0); WHITE BLOOD COUNT (AUTO) 9.2 K/uL (4.8-10.8)
[2019-04-12 05:40] LABS: INR 1.1 (0.8-1.2); PROTHROMBIN TIME 11.3 SECS (9.5-12.5)
[2019-04-12 05:51] LABS: ALANINE AMINOTRANSFERASE 15 U/L (12-78); ANION GAP 3 (5-15); ASPARTATE AMINOTRANSFERASE 9 U/L (10-37); CHLORIDE 106 mmol/L (98-107); CREATININE 1.07 mg/dL (0.55-1.30); GLUCOSE 142 mg/dL (70-99); POTASSIUM 3.3 mmol/L (3.5-5.1); SODIUM SERUM 145 mmol/L (136-145); TOTAL BILIRUBIN 0.4 mg/dL (0.0-1.0); UREA NITROGEN, BLOOD 33 mg/dL (8-21)
--- NOTE | 2019-04-12 06:00 | NUR ---
PULLING LINES PT CONTINUES TO PULL AT BIPAP MASK AND LINES FOR CRITICAL CARE MONITORING. REORIENTATION AND EDUCATION UNSUCCESSFUL. WILL MAKE MD AWARE.
[2019-04-12] MEDS: 0.45% NACL 1,000 ML IV SCH (06:15)
--- NOTE | 2019-04-12 06:40 | NUR ---
DR. TIMBO NEWTON MADE AWARE OF PT CONTINUOUSLY PULLING AT IV SITES, BIPAP, AND OTHER LINES. ORDERS RECEIVED FOR BILATERAL WRIST RESTRAINTS. WILL CARRY OUT ORDERED.
--- NOTE | 2019-04-12 07:12 | NUR ---
ENDORSEMENT BEDSIDE REPORT GIVEN TO ELMER JOHNSON USING SBAR APPROACH.
--- NOTE | 2019-04-12 07:20 | NUR ---
Received patient and report from [facility] shift nurse. In no acute distress. Breathing even and unlabored. No pain AEB no facial grimacing, no moaning. Awake and alert to name. Side rails x 2 up. Call light with in reach.
[2019-04-12] MEDS ORDERED: POTASSIUM CHLORIDE 20 MEQ TAB.PRT.SR PO ONE (09:00)
[2019-04-12] MEDS: FUROSEMIDE 40 MG/4 ML VIAL IVP SCH (09:07)
[2019-04-12] MEDS: PREDNISONE 10 MG TABLET PO SCH (09:10)
[2019-04-12] MEDS: MEMANTINE HCL 5 MG TABLET PO SCH ×2 (09:10→20:41)
[2019-04-12] MEDS: risperiDONE 0.25 MG TABLET (RisperDAL) PO SCH ×2 (09:10→20:41)
[2019-04-12] MEDS: acetaZOLAMIDE 250 MG TABLET (DIAMOX) PO SCH (09:10)
[2019-04-12] MEDS: ACETAMINOPHEN 325 MG TABLET PO PRN (09:11)
[2019-04-12] MEDS: INSULIN REGULAR, HUMAN 100 UNITS/ML, 10 ML VIAL (humuLIN R) SUBCUT PRN ×3 (11:59→20:39)
--- NOTE | 2019-04-12 14:00 | NUR ---
Informed by RT 02 liters nasal cannula decreased to 2 liters, patient tolerating change well.
--- NOTE | 2019-04-12 19:10 | NUR ---
AT 1907 P.M, RECEIVED NURSING REPORT FROM DAY SHIFT ELMER Torrez
--- NOTE | 2019-04-12 19:10 | NUR ---
Gave report and endorsed patient to nurse Styles. Patient in bed in no acute distress. Breathing even and unlabored. Call light with in reach. Side rails up.
[2019-04-12] MEDS: ATORVASTATIN 20 MG TABLET PO SCH (20:40)
[2019-04-12] MEDS: MELATONIN 3 MG TABLET PO SCH (20:41)
--- NOTE | 2019-04-12 23:20 | NUR ---
AT 2318 P.M, ON BI-PAP 07/02, BUR 20, FIO2 30 % BY GISELLA Nava
[2019-04-13] VITALS (16 sets, daily range): BP systolic 116–158
[2019-04-13] MEDS: LevALBUTEROL HCL 1.25 MG/0.5 ML *CONC.* VIAL.NEB (XOPENEX CONC.) INH SCH ×4 (00:54→18:56)
--- NOTE | 2019-04-13 05:25 | NUR ---
PATIENT IS ALERT, CONFUSION, VERBAL RESPONSIVE ,YELLS OUT , NIGHT TIME SLEEP INTERMITTENT, AT 0440 A.M, OFF BI-PAP, CHANGED TO NASAL CANNULA 2 LPM BY R.T, O2 SAT.94-96%, GIVE CLEAN, COMFORTABLE SUPPORT ALL TIMES, RAILS UP ,KEEP CLOSE MONITOR
[2019-04-13 06:07] LABS: BASOPHILS % (AUTO) 0.4 % (0.0-2.0); EOSINOPHILS # (AUTO) 0.1 K/uL (0.0-0.4); EOSINOPHILS % (AUTO) 1.6 % (0.0-4.0); HEMATOCRIT 26.8 % (36-48); HEMOGLOBIN 8.2 g/dL (12.0-16.0); LYMPHOCYTES # (AUTO) 1.7 K/uL (1.0-5.5); LYMPHOCYTES % (AUTO) 18.9 % (20.5-51.5); MEAN CORPUSCULAR HEMOGLOBIN 25 pg (27-31); MEAN CORPUSCULAR HGB CONC 31 % (32-36); MEAN CORPUSCULAR VOLUME 80 fL (79.0-98.0); MONOCYTES # (AUTO) 0.6 K/uL (0.0-1.0); MONOCYTES % (AUTO) 7.1 % (1.7-9.3); NEUTROPHILS # (AUTO) 6.5 K/uL (1.8-7.7); PLATELET COUNT (AUTO) 265 K/uL (130-430); RED BLOOD CELL COUNT(AUTO) 3.36 MIL/uL (4.2-6.2); RED CELL DISTRIBUTION WIDTH 20.1 % (9.0-15.0)
[2019-04-13] MEDS: INSULIN REGULAR, HUMAN 100 UNITS/ML, 10 ML VIAL (humuLIN R) SUBCUT PRN ×3 (06:10→18:07)
[2019-04-13 06:27] LABS: ANION GAP 4 (5-15); CALCIUM 7.7 mg/dL (8.4-11.0); CHLORIDE 106 mmol/L (98-107); CREATININE 0.96 mg/dL (0.55-1.30); GLUCOSE 148 mg/dL (70-99); POTASSIUM 3.4 mmol/L (3.5-5.1); SODIUM SERUM 143 mmol/L (136-145); UREA NITROGEN, BLOOD 30 mg/dL (8-21)
--- NOTE | 2019-04-13 07:22 | NUR ---
GIVE COMPLETE NURSING REPORT TO DAY SHIFT LATONIA Torrez
--- NOTE | 2019-04-13 07:23 | NUR ---
GIVE COMPLETE NURSING REPORT TO DAY SHIFT LATONIA Torrez Addendum: 04/13/19 at 0724 by Amilcar Wheeler RN DUPLICATE
--- NOTE | 2019-04-13 07:50 | NUR ---
AM ASSESSMENT. PT CALLING OUT IN MONGOLIAN WORDS, HELPED PT SIT UPRIGHT PRIOR TO HER BREAKFAST, IVF INFUSING THRU HER LEFT FOREARM, 1/2 NS AT 40 ML PER HR, PT RESTRAINTS REMOVED, PROM TO ALL EXTREMITIES, RESTRAINTS REAPPLIED, WILL CONTINUE TO MONITOR.
[2019-04-13] MEDS: PREDNISONE 10 MG TABLET PO SCH (09:18)
[2019-04-13] MEDS: acetaZOLAMIDE 250 MG TABLET (DIAMOX) PO SCH (09:18)
[2019-04-13] MEDS: risperiDONE 0.25 MG TABLET (RisperDAL) PO SCH (09:18)
[2019-04-13] MEDS: FUROSEMIDE 40 MG/4 ML VIAL IVP SCH ×2 (09:18→20:54)
[2019-04-13] MEDS ORDERED: POTASSIUM CHLORIDE 20 MEQ TAB.PRT.SR PO ONE (09:45)
--- NOTE | 2019-04-13 09:50 | NUR ---
FAMILY. PT'S DAUGHTER AT BEDSIDE, STATUS UPDATE GIVEN.
[2019-04-13] MEDS: MEMANTINE HCL 5 MG TABLET PO SCH (09:52)
--- NOTE | 2019-04-13 11:30 | NUR ---
PROCEDURE. DR BALL (RADIOLOGIST) AND MEDICAL DOCTOR AT BEDSIDE. TIME OUT DONE. PT FOR THORACENTESIS, PREPPED PT TP HER SIDE, PT DROWSY, HER DAUGHTER STANDING NEXT TO HER. DRAINED RIGHT SIDE WITH APPROXIMATELY 750 ML STRAW COLORED FLUID. SAMPLE LABELED AND SENT TO PATHOLOGY DEPT FOR TEST.
--- NOTE | 2019-04-13 12:25 | NUR ---
Machinist 2Nd Shift: met with pt. in ICU Met with pts. daughter in ICU. Pt. stated her mom is from [facility]. She stated she feels very blessed to be there as they have been taking good care of her mother and hopes her mother can return upon discharge. As LONG WALL MINING MACHINE HELPER was going through assessment, daughter stated she feels her mom is at the end. She also said her mom was going to be downgraded today. She said her mom was at [facility] 2 weeks ago, has Dementia and she is the only family member. Daughter did not have any questions, but LONG WALL MINING MACHINE HELPER let her know she could call her if she did have any needs or questions.
--- NOTE | 2019-04-13 12:30 | NUR ---
RESTRAINTS. PT WAS REPOSITIONED IN BED, LETHARGIC, DAUGHTER AT BEDSIDE, WAS SPEAKING TO HER IN THEIR CROW LANGUAGE, PT REMAINS SLEEPY, MOUTH OPENED, O2 VIA NASAL CANNULA, SAT 85% TO 92%, COLD WET TOWEL RUBBED TO HER FACE, RESTRAINTS REMOVED, PT ONLY GROANED AND WENT TO SLEEP, WILL CONTINUE TO MONITOR.
--- NOTE | 2019-04-13 13:40 | NUR ---
LOC. PT SLEEPING, CALLED OUT HER NAME, NO RESPONSE, WOULD GROAN TO PAINFUL STIMULI, MOUTH OPENED, WITH GURGLY SOUND AND SEEN TONGUE DRY, ATTEMPTED TO USE YANKAUER AND SUCTIONED ORALLY, NO SECRETIONS OBTAINED, ABG ORDERED TO EVALUATE BLOOD PH.
--- NOTE | 2019-04-13 14:25 | NUR ---
TO [facility]. TRANSFERRED PT ROOM 107-A, VIA PORTABLE CARDIAC MONITORING, ON O2 VIA VENTIMASK AT 28%, R.T. ACCOMPANYING PATIENT, REPORT GIVEN TO ELIZABETH ANDRADE.
--- NOTE | 2019-04-13 14:38 | NUR ---
RECEIVED THE PATIENT FROM ICU Received the report from CONTRACT LOADER-Nita. Patient resting in the bed with eyes closed, 2 RT at bedside. Patient was lethargic. On O2 28% via venturi mask. O2 sat 84%. RT applied BIPAP and O2 sat up to 92%. Skin warm and dry to touch. SL intact to LFA, no redness, no swelling, patent. F/C intact, drain gravity with yellow urine. Safety measure maintained. Call light within reached. Bed locked in low position, side rails up, bed alarm on. Will continue to monitor.
--- NOTE | 2019-04-13 15:00 | NUR ---
PATIENT REMAINED NO RESPONSE Patient remained no response. Continue on BIPAP. F/C intact, drain gravity. Safety measure maintained. Call light within reached. Bed in low position, side rails up, bed alarm on. Continue to monitor.
--- NOTE | 2019-04-13 15:45 | NUR ---
SEEN AND EXAMINED BY DOREEN JADE.
--- NOTE | 2019-04-13 15:50 | NUR ---
ASSESSED PATIENT WITH DR. FAWN Palencia tapped the patient's shoulder and patient not responded but eyelid movement noted. Per Dr. Palencia do not wake the patient up, let the patient sleep until dinner time to wake her up and feed her.
--- NOTE | 2019-04-13 16:05 | NUR ---
REPORTED ABG RESULT TO DR. SOLIS, VIET Called and received the call back from Dr. Solis. Reported ABG result: pH=7.411, pCO2=51.5, pO2=46.3, HCO3=32.0, O2 saturation=81.5, oxyhemoglobin=80.0 was on O2 2L/min via NC. When received patient from ICU to telemetry, patient on Venturi mask with O2 28% and O2 sat was 84%. RT at bedside and applied BIPAP with FIO2 30%. right thoracentesis with 750ml out. Dr. Solis with no new order at this time.
[2019-04-13 16:36] LABS: BODY FLUID GLUCOSE 180 mg/dL; BODY FLUID TOTAL PROTEIN 1.6 g/dL
[2019-04-13 16:40] LABS: BF APPEARANCE UNSPUN CLEAR (CLEAR); BODY FLUID COLOR LT YELLOW (LT YELLOW); BODY FLUID SOURCE/ TYPE PLEURAL; SOURCE/TYPE ,BODY FLUID THORACENTESIS
[2019-04-13 16:41] LABS: BODY FLUID TOTAL VOLUME 800 mL; RBC, BODY FLUID 687 /uL; WBC, BODY FLUID 109 /uL
[2019-04-13 16:53] LABS: MONOCYTES,BODY FLUID 88 %; NEUTROPHIL, BODY FLUID 12 %
--- NOTE | 2019-04-13 17:50 | NUR ---
PATIENT MOVED FINGER Noted patient with slight movement on left fingers. Tapped the patient but still not woke up. Continue on BIPAP. Safety measure maintained. Call light within reached. Continue to monitor.
--- NOTE | 2019-04-13 18:07 | NUR ---
DC=783 Humulin R insulin 4 units given per sliding scale for NK=017. Safety measure maintained. Call light within reached. Bed locked in low position, side rails up, bed alarm on. Continue to monitor.
--- NOTE | 2019-04-13 18:40 | NUR ---
CLOSING NOTE Patient's daughter (Betsy) come and with patient at bedside. Per Betsy wanted to feed the patient and placed patient O2 2L/min via NC while eating. O2 sat=90% on the monitor. No acute distress noted. F/C intact, drainage gravity. Safety measure maintained. Call light within reached. Bed locked in low position, side rails up, bed alarm on. Continue to monitor.
--- NOTE | 2019-04-13 18:55 | NUR ---
PATIENT BACK TO BIPAP Patient's daughter cannot woke the patient up. The patient remained no response. RT apply BIPAP to patient. Daughter at bedside. Safety measure maintained. Call light within reached. Will endorse to night nurse.
--- NOTE | 2019-04-13 19:15 | NUR ---
CHANGE OF SHIFT; pt. non verbal, very lethargic, on BIPAP @ 30% O2 , family at bedside, aware of pt. condition. HOB elevated. will reassess later. call light at bedside.
--- NOTE | 2019-04-13 20:15 | NUR ---
NOTES: pt. checked, family at bedside, on continuous BIPAP , face mask @ 30 % FIO2 , on mid finn's position, non responsive, nor open her eyes, family talking to her in Macedonian, some movements noted on her hands. will continue to monitor. pt. unable to eat due to altered level of consciousness. IV lock on left forearm. call light at bedside.
--- NOTE | 2019-04-13 20:34 | NUR ---
NOTES: RT called to check BIPAP mask, appears that there is an air leak, family was concerned. O2 sat 96%.
[2019-04-13] MEDS: MELATONIN 3 MG TABLET PO SCH (20:55)
[2019-04-13] MEDS: ATORVASTATIN 20 MG TABLET PO SCH (20:55)
--- NOTE | 2019-04-13 22:45 | NUR ---
NOTES: Dr. Jangium here and informed him about pt. level of consciousness and unable to swallow medications being so lethargic. ordered IVF .
[2019-04-13] MEDS ORDERED: KCL 20 mEq in D5/0.45NS 1000mL 1,000 ML IV ONE (22:59)
--- NOTE | 2019-04-13 23:15 | NUR ---
NOTES: IV of D5 1/2 NS with 20 meq. KCL started @ 60 cc/hr. as ordered via left wrist area. pt. with generalized edema. pt. repositioned, noted to open her eyes when name called. HOB elevated, turn to sides.
[2019-04-13] MEDS: KCL 20 mEq in D5/0.45NS 1000mL 1,000 ML IV SCH (23:20)
[2019-04-14 00:27] VITALS: BP_SYST 123
--- NOTE | 2019-04-14 00:30 | NUR ---
NOTES: pt. condition guarded. BIPAP continuous.
[2019-04-14] MEDS: LevALBUTEROL HCL 1.25 MG/0.5 ML *CONC.* VIAL.NEB (XOPENEX CONC.) INH SCH ×4 (01:00→20:02)
--- NOTE | 2019-04-14 02:30 | NUR ---
NOTES: continuous BIPAP, rate 20, @ 30 % FIO2. condition remain the same. IVF infusing/azevedo cath intact. kept both arms and legs elevated with pillows. safety measures in place. call light at bedside.
--- NOTE | 2019-04-14 04:00 | NUR ---
NOTES: pt. been asleep with continuous BIPAP, tries to open eyes on stimulation.
--- NOTE | 2019-04-14 05:02 | NUR ---
NOTES: complete am care done, repositioned. noted some hand movements, trying to do hand earth science technical officer. BIPAP continuous. guzman care done, cream applied on both groin area. noted a big bruise on her left shoulder.
--- NOTE | 2019-04-14 05:14 | NUR ---
NOTES: pt. daughter Betsy singh.
--- NOTE | 2019-04-14 05:24 | NUR ---
NOTES: called RT to check BIPAP mask, daughter saying its touching the eyes.
--- NOTE | 2019-04-14 05:31 | NUR ---
NOTES: RT at bedside, pt. more awake trying to remove BIPAP mask, put on 2l/nc for now and monitor for any resp. distress. O2 sat 98%.
[2019-04-14 06:18] LABS: BASOPHILS # (AUTO) 0.1 K/uL (0.0-0.2); BASOPHILS % (AUTO) 0.6 % (0.0-2.0); EOSINOPHILS # (AUTO) 0.1 K/uL (0.0-0.4); EOSINOPHILS % (AUTO) 1.3 % (0.0-4.0); HEMOGLOBIN 9.2 g/dL (12.0-16.0); LYMPHOCYTES # (AUTO) 1.8 K/uL (1.0-5.5); LYMPHOCYTES % (AUTO) 21.2 % (20.5-51.5); MEAN CORPUSCULAR HEMOGLOBIN 25 pg (27-31); MEAN CORPUSCULAR HGB CONC 31 % (32-36); MEAN CORPUSCULAR VOLUME 82 fL (79.0-98.0); MONOCYTES # (AUTO) 0.5 K/uL (0.0-1.0); MONOCYTES % (AUTO) 6.5 % (1.7-9.3); NEUTROPHILS # (AUTO) 5.9 K/uL (1.8-7.7); NEUTROPHILS % (AUTO) 70.4 % (40.0-70.0); PLATELET COUNT (AUTO) 269 K/uL (130-430); RED BLOOD CELL COUNT(AUTO) 3.68 MIL/uL (4.2-6.2); RED CELL DISTRIBUTION WIDTH 20.2 % (9.0-15.0); WHITE BLOOD COUNT (AUTO) 8.4 K/uL (4.8-10.8)
[2019-04-14 06:27] LABS: ANION GAP 4 (5-15); CALCIUM 8.1 mg/dL (8.4-11.0); CHLORIDE 106 mmol/L (98-107); CREATININE 0.93 mg/dL (0.55-1.30); GLUCOSE 150 mg/dL (70-99); POTASSIUM 3.7 mmol/L (3.5-5.1); SODIUM SERUM 145 mmol/L (136-145); UREA NITROGEN, BLOOD 25 mg/dL (8-21)
--- NOTE | 2019-04-14 06:30 | NUR ---
CLOSING NOTES; pt. daughter made aware if O2 sat drops will put back to BIPAP. checked BS 151, did not give any coverage. for further care and observation. will endorse to incoming shift.
--- NOTE | 2019-04-14 07:04 | NUR ---
RT NOTES Per patient's daughter's request, placed pt. back on Bipap.
--- NOTE | 2019-04-14 07:30 | NUR ---
OPENING NOTE Patient resting in the bed with eyes closed. No acute distress. On Bipap FiO2 30%. HOB elevated. Skin warm and dry to touch. IV intact to LFA, no redness, no swelling, no drainage. On KcL 20mEq in D5 1/2NS at 50ml/hr, infusing well. Patient's daughter (Betsy) with patient at bedside. F/C intact, drainage gravity. Safety measure maintained. Call light within reached. Bed locked in low position, side rails up, bed alarm on. Will continue to monitor.
[2019-04-14 07:55] VITALS: BP_SYST 123
[2019-04-14] MEDS: PREDNISONE 10 MG TABLET PO SCH (09:00)
[2019-04-14] MEDS: acetaZOLAMIDE 250 MG TABLET (DIAMOX) PO SCH (09:00)
[2019-04-14] MEDS: MEMANTINE HCL 5 MG TABLET PO SCH ×2 (09:00→21:00)
--- NOTE | 2019-04-14 09:40 | NUR ---
SEEN AND EXAMINED BY VIET WATSON WITH ORDER RECEIVED.
[2019-04-14] MEDS ORDERED: *LOVENOX 1MG/KG Q12H/PHARMACY XX PRN (09:45)
--- NOTE | 2019-04-14 09:50 | NUR ---
RT NOTES Per Dr Alves's order/per ABG result Bipap to 40% by RT Ontiveros.
[2019-04-14] MEDS: ENOXAPARIN SODIUM 100 MG/ML SYRINGE SUBCUT SCH ×2 (10:18→21:48)
[2019-04-14] MEDS: FUROSEMIDE 40 MG/4 ML VIAL IVP SCH ×2 (10:20→22:00)
--- NOTE | 2019-04-14 10:58 | NUR ---
Nutrition F/U RD reviewed pt's current EMR including diet Hx, physician notes, nursing notes, pertinent labs/meds/procedures, care trends and care activity. Current Diet Order: Pureed CCHO diet x 3 days Subjective information: Pt seen in bed, on BiPAP, w/ daughter at bedside. Per daughter, pt has been sleeping most of the time since yesterday. No breakfast was given to pt this morning. Last meal was yesterday before noon, daughter reported that pt ate 100% of breakfast, and some baby food for snacks before lunch. She stated that pt has been tolerating current diet. Per EMR, pt had thoracentesis done yesterday 04/13/19. Last BM 04/12/19 x1. Current PO intake: poor (04/13) 33% average of 3 meals. Estimated Energy Expenditure (kcals/day) 1450-1740kcal/day (25-30kcal/kg based on Adj BW for morbid obesity) Estimated Protein Required (g/day) 58-70g/day (1-1.2g/day based on Adj BW for geriatric maintenance) Estimated Fluid Required (l/day) Fluids needs per MD d/t hx of CHF Problem/Etiology/Signs/Symptoms Inadequate oral intake related to chewing difficulty as evidenced by PO intake meeting <75% of estimated nutrition needs, family request for change in texture. (*ongoing) Expected Outcomes/Goals Monitor appetite and PO intake w/ goals of pt meeting greater than 75% of estimated nutritional needs, labs trending WNL, normal GI function, and skin integrity/wt maintenance. Dietitian Recommendations *Recommend continuing Puree, CCHO diet. (ONS comes standard w/ current diet and provides additional 660 kcal and 30 gm protein daily) Follow Up High Risk: F/U in 2-3days
--- NOTE | 2019-04-14 11:00 | NUR ---
PATIENT MOVE HAND Patient resting in the bed. No acute distress. HOB elevated. Continue on Bipap with Fi02=40%. O2 sat 92% at this time. Patient moved her right hand when the daughter touching her. IV intact, IVF infusing well. F/C intact, drain gravity. Safety measure maintained. Call light within reached. Bed locked in low position, side rails up, bed alarm on. Continue to monitor.
--- NOTE | 2019-04-14 11:05 | NUR ---
Dietitian Recommendations *Recommend continuing DEACON Alonzo diet. (ONS comes standard w/ current diet and provides additional 660 kcal and 30 gm protein daily) Please see Nutrition F/U note for details. NETTA, RD
[2019-04-14 11:33] VITALS: BP_SYST 134
--- NOTE | 2019-04-14 12:10 | NUR ---
RT NOTES Took pt. off ob BIpap and placed on 2L NC, per outstanding order NOC and PRN. No adverse reactions noted. Saturation 98%. Dtr at bedside.
[2019-04-14] MEDS: INSULIN REGULAR, HUMAN 100 UNITS/ML, 10 ML VIAL (humuLIN R) SUBCUT PRN ×2 (12:21→17:31)
--- NOTE | 2019-04-14 12:22 | NUR ---
HX=096 Patient not wake up to eat. Daughter at bedside and refused insulin for CH=733. Safety measure maintained. Call light within reached. Continue to monitor.
--- NOTE | 2019-04-14 14:20 | NUR ---
PATIENT OPENED EYES Patient with episode of open eyes noted. No acute distress. Continue on O2 2L/min via NC. O2 sat 98% at this time. IV intact, IVF infusing well. F/C intact, drain gravity. Daughter at bedside. Safety measure maintained. Call light within reached. Continue to monitor.
[2019-04-14] MEDS: KCL 20 mEq in D5/0.45NS 1000mL 1,000 ML IV SCH ×2 (14:52→17:31)
[2019-04-14 15:22] VITALS: BP_SYST 91
--- NOTE | 2019-04-14 16:55 | NUR ---
PATIENT OPEN EYES AND TRY TO TALK TO FAMILY Patient resting in the bed. No acute distress. Continue on O2 2L/min via NC. HOB elevated. Families at bedside and talking to the patient. Patient responded with head and hands movement noted. IV intact. IVF infusing well. Safety measure maintained. Call light within reached. Continue to monitor.
--- NOTE | 2019-04-14 17:30 | NUR ---
OH=104 Daughter at bedside and refused insulin for DS=424. Per daughter, BS may be drop if received insulin and the patient not eat the whole day. Safety measure maintained. Call light within reached. Continue to monitor.
--- NOTE | 2019-04-14 18:15 | NUR ---
RT NOTES Placed pt back on bipap due to low saturation, improved 92% family at bedside.
--- NOTE | 2019-04-14 18:57 | NUR ---
CLOSING NOTE Patient resting in the bed. No acute distress. On Bipap at this time. O2 sat =90% at this time. HOB elevated. Skin warm and dry to touch. IV intact to LFA, no redness, no swelling, no drainage. On KCl 20mEq in D5 1/2NS at 50ml/hr, infusing well. Family at bedside. F/C intact, drainage gravity. Safety measure maintained. Call light within reached. Bed locked in low position, side rails up, bed alarm on. Will endorse to night nurse.
--- NOTE | 2019-04-14 19:15 | NUR ---
OPENING NOTES RECEIVED PATIENT IN BED LETHARGIC ON BIPAP 40% FI02. BREATHING UNLABORED. IVF INFUSING ORDERED. GENERALIZED EDEMA PRESENT. FAMILY AT BEDSIDE. BED IN LOWEST LOCKED POSITION WITH ALARM ON.
--- NOTE | 2019-04-14 19:50 | NUR ---
DR FAWN AUGUSTINE MAKING ROUNDS. SPOKE WITH PATIENT DAUGHTER KRISHNA AT BEDSIDE.
[2019-04-14 20:00] VITALS: BP_SYST 126
[2019-04-14] MEDS: ATORVASTATIN 20 MG TABLET PO SCH (21:00)
[2019-04-14] MEDS: MELATONIN 3 MG TABLET PO SCH (21:00)
--- NOTE | 2019-04-14 22:00 | NUR ---
IV LINE NEW IV LINE INSERTED TO RFA G22 WITH GOOD BLOOD RETURN. PATIENT BLOOD SUGAR 167 NO COVERAGE GIVEN PER FAMILY REQUEST DUE TO PATIENT NOT EATING.
--- NOTE | 2019-04-15 00:25 | NUR ---
ROUNDS PATIENT RESTING BREATHING UNLABORED ON BIPAP. VITAL SIGNS STABLE.
[2019-04-15] MEDS: LevALBUTEROL HCL 1.25 MG/0.5 ML *CONC.* VIAL.NEB (XOPENEX CONC.) INH SCH ×4 (00:56→19:27)
[2019-04-15] MEDS ORDERED: LevALBUTEROL HCL 1.25 MG/0.5 ML *CONC.* VIAL.NEB (XOPENEX CONC.) INH ONE (01:02)
[2019-04-15 01:40] VITALS: BP_SYST 128
--- NOTE | 2019-04-15 03:09 | NUR ---
ROUNDS PATIENT RESTING. NO DISTRESS NOTED. IVF INFUSING.
--- NOTE | 2019-04-15 05:45 | NUR ---
AM CARE AM CARE DONE. NO BOWEL MOVEMENT. PATIENT CHUX CHANGED.
--- NOTE | 2019-04-15 06:27 | NUR ---
CLOSING NOTES NO CHANGE IN PATIENT CONDITION. PATIENT NEEDS ATTENDED. CURRENT BIPAP SETTINGS TOLERATED.
[2019-04-15 06:29] LABS: BASOPHILS # (AUTO) 0.1 K/uL (0.0-0.2); BASOPHILS % (AUTO) 1.1 % (0.0-2.0); EOSINOPHILS # (AUTO) 0.1 K/uL (0.0-0.4); EOSINOPHILS % (AUTO) 1.5 % (0.0-4.0); HEMATOCRIT 27.7 % (36-48); HEMOGLOBIN 8.5 g/dL (12.0-16.0); LYMPHOCYTES # (AUTO) 1.4 K/uL (1.0-5.5); MEAN CORPUSCULAR HEMOGLOBIN 24 pg (27-31); MEAN CORPUSCULAR HGB CONC 31 % (32-36); MONOCYTES # (AUTO) 0.6 K/uL (0.0-1.0); MONOCYTES % (AUTO) 7.4 % (1.7-9.3); NEUTROPHILS # (AUTO) 5.6 K/uL (1.8-7.7); PLATELET COUNT (AUTO) 268 K/uL (130-430); RED BLOOD CELL COUNT(AUTO) 3.52 MIL/uL (4.2-6.2); RED CELL DISTRIBUTION WIDTH 20.2 % (9.0-15.0); WHITE BLOOD COUNT (AUTO) 7.8 K/uL (4.8-10.8)
[2019-04-15 06:51] LABS: ALANINE AMINOTRANSFERASE 16 U/L (12-78); ALBUMIN 1.8 g/dL (3.4-4.8); ASPARTATE AMINOTRANSFERASE 12 U/L (10-37); CALCIUM 8.5 mg/dL (8.4-11.0); CHLORIDE 104 mmol/L (98-107); GLUCOSE 148 mg/dL (70-99); POTASSIUM 3.3 mmol/L (3.5-5.1); SODIUM SERUM 136 mmol/L (136-145); TOTAL BILIRUBIN 0.5 mg/dL (0.0-1.0); UREA NITROGEN, BLOOD 21 mg/dL (8-21)
[2019-04-15 07:02] LABS: ANION GAP < 3 (5-15)
[2019-04-15 07:26] LABS: MEAN CORPUSCULAR VOLUME 79 fL (79.0-98.0)
--- NOTE | 2019-04-15 07:50 | NUR ---
OPENING NOTES RECEIVED PATIENT FROM DOLL WIGS HACKLER. PATIENT IN BED LETHARGIC ON BIPAP 40% FI02. NO S/SX PAIN NOTED. BREATHING UNLABORED. SKIN WARM AND DRY TO TOUCH. IV TO LFA AND RFA INTACT AND PATENT. IVF INFUSING ORDERED. GENERALIZED EDEMA NOTED. JEFFERS CATH INTACT AND PATENT DRAINING YELLOW URINE. BED IN LOW AND LOCKED POSITION. SIDERAIL UPX3. BED ALARM ON. CALL LIGHT IN REACH. CONT TO MONITOR
[2019-04-15 08:00] VITALS: BP_SYST 114
[2019-04-15] MEDS: PREDNISONE 10 MG TABLET PO SCH (08:27)
[2019-04-15] MEDS: MEMANTINE HCL 5 MG TABLET PO SCH ×2 (08:31→20:47)
[2019-04-15] MEDS: acetaZOLAMIDE 250 MG TABLET (DIAMOX) PO SCH (08:31)
[2019-04-15] MEDS: FUROSEMIDE 40 MG/4 ML VIAL IVP SCH ×2 (08:32→20:48)
--- NOTE | 2019-04-15 08:40 | NUR ---
MEDS ALL DUE MEDS ADMINISTERED ORDERED; MISSY WELL. DAUGHTER KRISHNA AT BEDSIDE. CONT TO MONITOR
--- NOTE | 2019-04-15 09:04 | NUR ---
SEEN AND EXAMINED BY BARBARA AT BEDSIDE. ABG RESULTS REPORTED TO MD. GARCIA AT BEDSIDE
[2019-04-15] MEDS ORDERED: POTASSIUM CHLORIDE 40 MEQ in NS 250 ML IV ONE (09:15)
[2019-04-15] MEDS: ENOXAPARIN SODIUM 100 MG/ML SYRINGE SUBCUT SCH ×2 (09:34→22:47)
[2019-04-15 11:25] VITALS: BP_SYST 139
--- NOTE | 2019-04-15 11:37 | NUR ---
BS PATIENT BLOOD GLUCOSE IS 197mg/dL. DAUGHTER REFUSED INSULIN COVERAGE DUE TO PATIENT NOT EATING. DM TEACHING DONE. CONT TO MONITOR
--- NOTE | 2019-04-15 12:19 | NUR ---
NOTE PATIENT KEPT COUGHING WHILE FEEDING PATIENT. MADE AWARE. PER MD TO STOP FEEDING PATIENT. ASKED MD FOR SWALLOW EVAL AND SAID NO.
[2019-04-15] MEDS: KCL 20 mEq in D5/0.45NS 1000mL 1,000 ML IV SCH (13:56)
--- NOTE | 2019-04-15 14:01 | NUR ---
NOTE PATIENT JUST FINISHED BREATHING TX, MISSY WELL. MISSY SUCTIONING. HUNG NEW IVF ORDERED. PATIENT SITTING UP IN BED TALKING TO DAUGHTER AND OTHER FAMILY MEMBERS.
--- NOTE | 2019-04-15 16:00 | NUR ---
NOTE PATIENT AWAKE. REPOSITIONED WITH DAIRY CONSULTANT. NO S/SX PAIN NOTED. MISSY IVF. JEFFERS CATH INTACT AND PATENT. ALL NEEDS MET. CONT TO MONITOR
[2019-04-15 16:03] VITALS: BP_SYST 122
--- NOTE | 2019-04-15 17:56 | NUR ---
BS PATIENT STABLE. BLOOD SUGAR 195 mg/dL. DAUGHTER REFUSE INSULIN COVERAGE AT THIS TIME DUE TO PATIENT NOT EATING. TEACHING ON DM DONE. ALL NEEDS MET. CONT TO MONITOR
--- NOTE | 2019-04-15 18:33 | NUR ---
CLOSING NOTE PATIENT IS AWAKE TALKING TO DAUGHTER KRISHNA. NO S/SX PAIN. NO ACUTE DISTRESS. NO SOB. SKIN WARM AND DRY TO TOUCH. NO S/SX HYPO/HYPERGLYCEMIA NOTED. IV INTACT AND PATENT; MISSY IVF. JEFFERS CATH INTACT AND PATENT DRAINING CLEAR YELLOW URINE. BED IN LOW AND LOCKED POSITION. SIDERAIL UPX3. BED ALARM ON. CALL LIGHT IN REACH. WILL ENDORSE TO ONCOMING SHIFT.
--- NOTE | 2019-04-15 19:27 | NUR ---
SEEN AND EXAMINED PTIENT AT BEDSIDE. ORDERED PUREE DIET, AND MOM FOR NO BMX3 DAYS ORDERED. ORDERS NOTED AND CARRIED OUT
[2019-04-15] MEDS ORDERED: MILK OF MAGNESIA 30 ML UDC PO PRN (19:30)
--- NOTE | 2019-04-15 19:35 | NUR ---
ROUNDS PATIENT RESTING COMFORTABLY IN BED, NOT IN DISTRESS, VITALS STABLE, NO PAIN AND DISCOMFORT NOTED AT THIS TIME. ASSESSMENT DONE AND DOCUMENTED. SEE FLOWSHEET. NEEDS ATTENDED TO. SAFETY AND FALL PRECAUTION MEASURES IN PLACED. BED IN LOW AND LOCKED POSITION. CALL LIGHT PLACED WITHIN REACH.
[2019-04-15] MEDS: ATORVASTATIN 20 MG TABLET PO SCH (20:47)
[2019-04-15] MEDS: INSULIN REGULAR, HUMAN 100 UNITS/ML, 10 ML VIAL (humuLIN R) SUBCUT PRN (20:53)
[2019-04-15] MEDS: MELATONIN 3 MG TABLET PO SCH (20:57)
--- NOTE | 2019-04-15 21:15 | NUR ---
MEDICATION DUE MEDICATIONS GIVEN SCHEDULED, TOLERATED WELL. WILL CONTINUE TO MONITOR.
--- NOTE | 2019-04-16 00:12 | NUR ---
PATIENT RESTING: Patient resting quietly. No acute distress noted. Vital signs within normal range.
[2019-04-16 00:24] VITALS: BP_SYST 113
[2019-04-16] MEDS: LevALBUTEROL HCL 1.25 MG/0.5 ML *CONC.* VIAL.NEB (XOPENEX CONC.) INH SCH ×4 (01:22→19:57)
--- NOTE | 2019-04-16 02:15 | NUR ---
ROUNDS PATIENT ASLEEP, NO SOB NOR PAIN AND DISCOMFORT NOTED, WILL CONTINUE TO MONITOR.
--- NOTE | 2019-04-16 04:13 | NUR ---
PATIENT RESTING: Patient resting quietly. No acute distress noted. Vital signs within normal range.
--- NOTE | 2019-04-16 06:21 | NUR ---
CLOSING NOTES PATIENT AWAKE, VITALS STABLE, NO PAIN AND DISCOMFORT AT THIS TIME. ALL NEEDS ATTENDED TO. SAFETY AND FALL MEASURES MAINTAINED. CALL LIGHT PLACED WITHIN REACH.
[2019-04-16 08:00] VITALS: BP_SYST 116
--- NOTE | 2019-04-16 08:00 | NUR ---
initial notes rec patient asleep but arousable to stimuli but confused. ivf infusing well on the r forearm. no infiltration noted. resp easy and unlabored. with o2 at 4 liters via nasal cannula. no sob noted. bed to the lowest position and side rails up and locked. call light within reached.
[2019-04-16 08:17] LABS: ALANINE AMINOTRANSFERASE 18 U/L (12-78); ANION GAP 4 (5-15); ASPARTATE AMINOTRANSFERASE 16 U/L (10-37); CALCIUM 8.3 mg/dL (8.4-11.0); CHLORIDE 108 mmol/L (98-107); CREATININE 0.87 mg/dL (0.55-1.30); GLUCOSE 140 mg/dL (70-99); POTASSIUM 3.7 mmol/L (3.5-5.1); SODIUM SERUM 143 mmol/L (136-145); TOTAL BILIRUBIN 0.6 mg/dL (0.0-1.0); UREA NITROGEN, BLOOD 18 mg/dL (8-21)
[2019-04-16] MEDS: MEMANTINE HCL 5 MG TABLET PO SCH ×2 (09:29→20:49)
[2019-04-16] MEDS: acetaZOLAMIDE 250 MG TABLET (DIAMOX) PO SCH (09:29)
[2019-04-16] MEDS: PREDNISONE 10 MG TABLET PO SCH (09:29)
[2019-04-16] MEDS: FUROSEMIDE 40 MG/4 ML VIAL IVP SCH ×2 (09:29→20:49)
[2019-04-16] MEDS: ENOXAPARIN SODIUM 100 MG/ML SYRINGE SUBCUT SCH (09:31)
--- NOTE | 2019-04-16 10:00 | NUR ---
rounds due meds given and ese well. daughter at bedside. resting comfortably at this time.
[2019-04-16 12:00] VITALS: BP_SYST 102
--- NOTE | 2019-04-16 12:00 | NUR ---
rounds patient with good appetite. no hypo hyperglycemic reaction noted. pt was suctioned orally and with obtained large amount of phlegm.
[2019-04-16] MEDS: INSULIN REGULAR, HUMAN 100 UNITS/ML, 10 ML VIAL (humuLIN R) SUBCUT PRN ×3 (12:10→21:01)
[2019-04-16] MEDS: KCL 20 mEq in D5/0.45NS 1000mL 1,000 ML IV SCH (12:14)
--- NOTE | 2019-04-16 14:00 | NUR ---
rounds having a breathing tx at this time. no sob noted.
[2019-04-16 17:11] VITALS: BP_SYST 102
--- NOTE | 2019-04-16 18:30 | NUR ---
rounds no hypo hyperglycemic reaction noted. daughter at bedside and feeding patient.
--- NOTE | 2019-04-16 19:00 | NUR ---
closing notes dafne with [facility] came and spoke with daughter jaycee. dr quiroz stated will d/c patient in am [facility]. bed to the lowest position and side rails up and locked. call light within reached. no sob noted.
--- NOTE | 2019-04-16 19:50 | NUR ---
PM SHIFT ASSESSMENT Received patient lying in bed, aox1, on 02 2L NC, vital signs stable. No facial grimacing note for pain, IV Line to right forearm intact and patent, IVF infusing. Patient repositioned and turned with pillow support, Escobar catheter secured and to gravity, draining yellow urine. Fall and safety precautions in place, will closely monitor.
[2019-04-16 20:08] VITALS: BP_SYST 123
[2019-04-16] MEDS: MELATONIN 3 MG TABLET PO SCH (20:49)
[2019-04-16] MEDS: ATORVASTATIN 20 MG TABLET PO SCH (20:49)
[2019-04-16] MEDS: APIXABAN 2.5 MG TABLET PO SCH (20:50)
--- NOTE | 2019-04-16 21:51 | NUR ---
MED PASS Patient awake, no sob noted, remains on 02 2L NC, due medications administered, crushed and given with pudding. Aspiration precautions maintained. Addendum: 04/16/19 at 2157 by Elizabeth Hernandez RN blood sugar check this pm of 323, covered with regular insulin sliding scale per md order.
--- NOTE | 2019-04-16 23:03 | NUR ---
RN ROUNDS Patient sleeping, respirations even and unlabored, remains on 02 2L NC, repositioned with pillow support earlier, fall and safety measures in place, will monitor.
--- NOTE | 2019-04-16 23:43 | NUR ---
RN ROUNDS Patient placed on bipap by respiratory therapist, breathing is even and unlabored, vital signs stable, repositioned with pillow support, will monitor.
[2019-04-17] MEDS: LevALBUTEROL HCL 1.25 MG/0.5 ML *CONC.* VIAL.NEB (XOPENEX CONC.) INH SCH ×3 (01:40→14:05)
[2019-04-17 01:42] VITALS: BP_SYST 122
--- NOTE | 2019-04-17 02:07 | NUR ---
RN ROUNDS Patient continues to sleep with bipap in place, breathing is even and unlabored, IVF continues to infuse, repositioned with pillow support, fall and safety measures in place, will monitor.
--- NOTE | 2019-04-17 04:07 | NUR ---
RN ROUNDS Patient resting quietly with bipap in place, breathing is even and unlabored, repositioned with pillow support, fall and safety measures in place, will monitor.
[2019-04-17] MEDS: KCL 20 mEq in D5/0.45NS 1000mL 1,000 ML IV SCH (05:32)
[2019-04-17] MEDS: INSULIN REGULAR, HUMAN 100 UNITS/ML, 10 ML VIAL (humuLIN R) SUBCUT PRN ×2 (05:35→12:23)
--- NOTE | 2019-04-17 06:09 | NUR ---
RN ROUNDS Patient resting quietly with bipap in place, breathing is even and unlabored, blood sugar check this am of 195, covered with 2 units regular insulin per md sliding scale, patient repositioned with pillow support, bilateral heels elevated with pillow support, fall and safety measures maintained, will continue to monitor until report given to am nurse.
[2019-04-17 06:42] LABS: BASOPHILS # (AUTO) 0.1 K/uL (0.0-0.2); BASOPHILS % (AUTO) 0.9 % (0.0-2.0); EOSINOPHILS # (AUTO) 0.1 K/uL (0.0-0.4); EOSINOPHILS % (AUTO) 1.2 % (0.0-4.0); HEMOGLOBIN 8.5 g/dL (12.0-16.0); LYMPHOCYTES # (AUTO) 1.7 K/uL (1.0-5.5); LYMPHOCYTES % (AUTO) 20.1 % (20.5-51.5); MEAN CORPUSCULAR HEMOGLOBIN 24 pg (27-31); MEAN CORPUSCULAR HGB CONC 30 % (32-36); MONOCYTES # (AUTO) 0.7 K/uL (0.0-1.0); MONOCYTES % (AUTO) 8.1 % (1.7-9.3); NEUTROPHILS # (AUTO) 5.7 K/uL (1.8-7.7); NEUTROPHILS % (AUTO) 69.7 % (40.0-70.0); PLATELET COUNT (AUTO) 258 K/uL (130-430); RED BLOOD CELL COUNT(AUTO) 3.48 MIL/uL (4.2-6.2); RED CELL DISTRIBUTION WIDTH 20.5 % (9.0-15.0); WHITE BLOOD COUNT (AUTO) 8.2 K/uL (4.8-10.8)
[2019-04-17 06:43] LABS: ALANINE AMINOTRANSFERASE 19 U/L (12-78); ALBUMIN 1.8 g/dL (3.4-4.8); ANION GAP 3 (5-15); ASPARTATE AMINOTRANSFERASE 11 U/L (10-37); CALCIUM 8.2 mg/dL (8.4-11.0); CHLORIDE 107 mmol/L (98-107); CREATININE 0.89 mg/dL (0.55-1.30); GLUCOSE 204 mg/dL (70-99); POTASSIUM 3.7 mmol/L (3.5-5.1); SODIUM SERUM 142 mmol/L (136-145); TOTAL BILIRUBIN 0.4 mg/dL (0.0-1.0); UREA NITROGEN, BLOOD 22 mg/dL (8-21)
[2019-04-17 07:26] LABS: MEAN CORPUSCULAR VOLUME 81 fL (79.0-98.0)
--- NOTE | 2019-04-17 08:00 | NUR ---
initial notes rec patient awake with hob elevated. ivf infusing well on the r arm. no infiltration noted. pt back on o2 at 2 liters via nasal cannula. no sob noted. but with productive cough/ suctioned and obtained mod amount thick yellow phlegm. turned repositioned for comfort. bed to the lowest position and side rails up and locked. will continue to monitor patient.
--- NOTE | 2019-04-17 10:00 | NUR ---
rounds due meds given as ordered. was cleaned at bedside with nagat. turned repositioned for comfort.
[2019-04-17] MEDS: PREDNISONE 10 MG TABLET PO SCH (10:35)
[2019-04-17] MEDS: MEMANTINE HCL 5 MG TABLET PO SCH (10:35)
[2019-04-17] MEDS: acetaZOLAMIDE 250 MG TABLET (DIAMOX) PO SCH (10:35)
[2019-04-17] MEDS: FUROSEMIDE 40 MG/4 ML VIAL IVP SCH (10:37)
[2019-04-17] MEDS: APIXABAN 2.5 MG TABLET PO SCH (10:37)
[2019-04-17 11:16] VITALS: BP_SYST 122
--- NOTE | 2019-04-17 12:00 | NUR ---
rounds seen by dr quiroz and gave order for pt to transfer to [facility] under hopsice. awaiting for julian from [facility] re transfer.
--- NOTE | 2019-04-17 13:30 | NUR ---
Nutrition F/U RD reviewed pt's current EMR including diet Hx, physician notes, nursing notes, pertinent labs/meds/procedures, care trends and care activity. Current Diet Order: Pureed NTL diet x 1 day Subjective information: Pt seen in bed, awake and able to engage in conversation but w/ poor concentration. Pt stated that she ate very well for breakfast. Per EMR, PO intake noted to have improved a lot (100% average of 3 meals 04/16/19). Last BM 04/11/19. Per MD notes, pt is for Hospice eval. RD noted BG lab values to be elevated. Current diet needs to have CCHO included to maintain BG values. Current PO intake: Good 100% average of 3 meals Estimated Energy Expenditure (kcals/day) 1450-1740kcal/day (25-30kcal/kg based on Adj IBW for morbid obesity) Estimated Protein Required (g/day) 58-70g/day (1-1.2g/day based on Adj IBW for geriatric maintenance) Estimated Fluid Required (l/day) Fluids needs per MD d/t hx of CHF Problem/Etiology/Signs/Symptoms Inadequate oral intake related to chewing difficulty as evidenced by PO intake meeting <75% of estimated nutrition needs, family request for change in texture. (*ongoing) Altered nutrition related labs r/t endocrine dysfunction and current diet order AEB elevated BG and POC BG lab values and current diet. (*new) Expected Outcomes/Goals Monitor appetite and PO intake w/ goals of pt meeting greater than 75% of estimated nutritional needs, labs trending WNL, normal GI function, and skin integrity/wt maintenance. Dietitian Recommendations *Recommend Puree, CCHO NTL diet. (ONS Glucerna Shake comes standard w/ current diet and provides additional 660 kcal and 30 gm protein daily) Follow Up High Risk: F/U in 2-3days
--- NOTE | 2019-04-17 13:35 | NUR ---
Dietitian Recommendations *Recommend DEACON Alonzo NTCady diet. (ONS Glucersilva Shake comes standard w/ current diet and provides additional 660 kcal and 30 gm protein daily) Please see Nutrition F/U note for details. NETTA, RD
[2019-04-17 14:28] VITALS: BP_SYST 122
--- NOTE | 2019-04-17 14:30 | NUR ---
closing notes pt was discharged to [facility]. ivl was removed as per dr quiroz. azevedo intact. report given to transport that picked up patient. stable and needs attended.daughter zully was called and left message.
== END 2019-04-17 14:30 | disposition hospice, inpatient (51) | DRG 291 ==
LOC: SED 16:34 → SIC 18:08 → STU 04-13 14:22
PROVIDERS: ADMIT Family Medicine; ATTEND Family Medicine
PROC: 5A09357 Assistance with Respiratory Ventilation, Less than 24 Consecutive Hours, Continuous Positive Airway Pressure (ICD-10-PCS; 2019-04-10)
PROC: 5A09357 Assistance with Respiratory Ventilation, Less than 24 Consecutive Hours, Continuous Positive Airway Pressure (ICD-10-PCS; 2019-04-12)
PROC: 0W993ZZ Drainage of Right Pleural Cavity, Percutaneous Approach (ICD-10-PCS; principal; 2019-04-13)
PROC: 5A09357 Assistance with Respiratory Ventilation, Less than 24 Consecutive Hours, Continuous Positive Airway Pressure (ICD-10-PCS; 2019-04-13)
PROC: 5A09357 Assistance with Respiratory Ventilation, Less than 24 Consecutive Hours, Continuous Positive Airway Pressure (ICD-10-PCS; 2019-04-14)
DX: I50.33 Acute on chronic diastolic (congestive) heart failure (principal); G93.41 Metabolic encephalopathy; J96.21 Acute and chronic respiratory failure with hypoxia; J96.22 Acute and chronic respiratory failure with hypercapnia; J91.8 Pleural effusion in other conditions classified elsewhere; J44.1 Chronic obstructive pulmonary disease with (acute) exacerbation; Z68.41 Body mass index [BMI] 40.0-44.9, adult; E11.22 Type 2 diabetes mellitus with diabetic chronic kidney disease; E66.9 Obesity, unspecified; E78.5 Hyperlipidemia, unspecified; F03.90 Unspecified dementia, unspecified severity, without behavioral disturbance, psychotic disturbance, mood disturbance, and anxiety; I27.81 Cor pulmonale (chronic); I48.0 Paroxysmal atrial fibrillation; J44.9 Chronic obstructive pulmonary disease, unspecified; F32.9 Major depressive disorder, single episode, unspecified; N18.9 Chronic kidney disease, unspecified; Z90.710 Acquired absence of both cervix and uterus; Z85.3 Personal history of malignant neoplasm of breast; Z86.718 Personal history of other venous thrombosis and embolism; Z86.73 Personal history of transient ischemic attack (TIA), and cerebral infarction without residual deficits; Z90.13 Acquired absence of bilateral breasts and nipples; Z87.891 Personal history of nicotine dependence; Z92.21 Personal history of antineoplastic chemotherapy
CPT/HCPCS: 32555; 36415; 36600; 70450-TC; 71045; 80048; 80053; 81000-TC; 82803-TC; 82947-TC; 82962; 83605; 83735-TC; 83880; 84157-TC; 84484; 85025; 85610-TC; 87040-TC; 87070-TC; 87081; 87086; 88108; 88305; 88313; 89051-TC; 89060-TC; 93005; 94640; 94660; 94760; 96365; 96372; 96375; 99285; C1729; G0378; J1650; J1815; J1940; J3480; J7030; J7050; J7512; J7612; J7620